=== PATIENT | male | born 1955 | race Caucasian/White ===

== ENCOUNTER → 2016-07-22 | Outpatient (CLI) | payer OTHER ==
--- NOTE | 2016-07-22 18:31 | US ---
EXAMINATION TYPE: US venous doppler duplex LE RT DATE OF EXAM: 07/22/2016 6:20 PM COMPARISON: NONE CLINICAL HISTORY: M79.661 Pain in limb R22.41 Limb swelling. Swelling in right leg x few months. No hx of blood clots or on blood thinners SIDE PERFORMED: Right TECHNIQUE: The lower extremity deep venous system is examined utilizing real time linear array sonog juventino with graded compression, doppler sonography and color-flow sonography. VESSELS IMAGED: External Iliac Vein (EIV) Common Femoral Vein Deep Femoral Vein Greater Saphenous Vein * Femoral Vein Popliteal Vein Small Saphenous Vein * Proximal Calf Veins (* superficial vessels) Right Leg: Appears negative for DVT IMPRESSION: No evidence of deep venous thrombosis in the right leg. Normal exam.
== END | disposition home or self-care (01) ==
LOC: RADUSMAIN 17:44
PROVIDERS: ATTEND Internal Medicine
DX: R22.41 Localized swelling, mass and lump, right lower limb (principal)

== ENCOUNTER → 2016-08-30 | Outpatient (CLI) | payer OTHER ==
--- NOTE | 2016-08-30 17:57 | PN ---
DATE OF SLEEP CENTER PROGRESS NOTE: 08/30/2016 This patient has severe symptomatic obstructive sleep apnea with an AHI of 89.2. He has come again after a year and a half of interruption. I have given and treated this patient with BiPAP at a pressure of 14/10 cm of water with a Simplus full-face mask. After using it for a few months, he quit using the BiPAP for reasons that are not clear to me. He claims that there was some leak around the mask and he was unable to tolerate the treatment; he ultimately quit the treatment approximately a year ago. He also had lost his privileges to maintain his oxygen that was being used at 3 L/minute along with his BiPAP treatment. Currently he is on no treatment. He is having severe tiredness and fatigue and his sleep is quite fragmented. He is snoring and waking up very tired and sleepy during the day. His Lindrith score is 12. BP is 117/80, pulse 95 , respiratory rate 18. Temperature 98.7. Saturation 92% on room air. Neck size 17-1/2 inches. Weight 251. GENERAL APPEARANCE: Calm, comfortable. HEENT: Short neck. Crowding of posterior pharynx. Poor dental hygiene. No goiter or neck masses. LUNGS: Clear to auscultation. Heart sounds regular rate and rhythm. Normal S1, S2. ABDOMEN: Soft, non-tender. No organomegaly. EXTREMITIES: No edema. No cyanosis or clubbing. IMPRESSION: 1. Severe symptomatic obstructive sleep apnea; AHI of 89.2. Noncompliance with treatment. 2. Obesity; body mass index of 45. 3. Chronic hypersomnia. Lindrith score of 12. 4. Hypertension. 5. Hyperlipidemia. 6. cable splicing technician worker. 7. History of cerebrovascular accident. PLAN: 1. Refit this patient with a full-face mask. Will try the AirFit F10 full-face mask. 2. Restart BiPAP therapy. 3. See me back in 2 months' time to reassess and reevaluate compliance. CAREN
== END ==
LOC: SLEEP 13:26
PROVIDERS: ATTEND Internal Medicine Critical Care Medicine
DX: G47.33 Obstructive sleep apnea (adult) (pediatric) (principal); E66.9 Obesity, unspecified; G47.10 Hypersomnia, unspecified; I10 Essential (primary) hypertension; E78.5 Hyperlipidemia, unspecified; Z68.42 Body mass index [BMI] 45.0-49.9, adult

== ENCOUNTER → 2016-10-12 | Outpatient (CLI) | payer OTHER ==
[2016-10-12 11:38] LABS: CH 29.8; HCT 48.3 % (39.0-53.0); HDW 2.93; HGB 16.3 gm/dL (13.0-17.5); MCH 28.9 pg (25.0-35.0); MCHC 33.8 g/dL (31.0-37.0); MCV 85.5 fL (80.0-100.0); Mean Platelet Volume 7.4; RBC 5.65 m/uL (4.30-5.90); RDW 15.1 % (11.5-15.5); WBC 7.8 k/uL (3.8-10.6)
[2016-10-12 12:46] LABS: ALT 48 U/L (21-72); AST 28 U/L (17-59); Alkaline Phosphatase 94 U/L (38-126); Anion Gap 10 mmol/L; Blood Urea Nitrogen 16 mg/dL (9-20); Calcium 9.6 mg/dL (8.4-10.2); Carbon Dioxide 26 mmol/L (22-30); Chloride 105 mmol/L (98-107); Glucose 134 mg/dL (74-99); Non-African American GFR(MDRD) >60 (>60 ml/min/1.73 sqM); Potassium 4.5 mmol/L (3.5-5.1); Sodium 141 mmol/L (137-145); Total Bilirubin 0.6 mg/dL (0.2-1.3); Total Protein 7.3 g/dL (6.3-8.2)
[2016-10-12 13:53] LABS: Vitamin B12 349 pg/mL (239-931)
== END | disposition home or self-care (01) ==
LOC: LABWHC1 11:16
PROVIDERS: ATTEND Psychiatry & Neurology Pain Medicine
DX: R41.3 Other amnesia (principal)
CPT/HCPCS: 36415; 80053; 82306; 82607; 82746; 83090; 84439; 84443; 84481; 85027

== ENCOUNTER 2016-10-16 18:57 | Inpatient (IN) | payer OTHER ==
--- NOTE | 2016-10-16 19:01 | ED ---
General Adult HPI - General Stated complaint: Alter Mental State Time Seen by Provider: 10/16/16 18:58 Source: RN notes reviewed, old records reviewed Limitations: altered mental status - History of Present Illness Initial comments: This is a 61-year-old male here for evaluation and altered mental status. Patient's friend for evaluation of altered mental status. Patient is complaining of more pain and more weakness for the last day and. She complains of pain over suprapubic pubic area, patient also has cough cough is chronic in nature. The getting worse. Patient had and did not know that he had a fever today. He does not feel well, decreased appetite. Mild nausea no vomiting. No diarrhea. - Related Data Home Medications Medication Instructions Recorded Confirmed Albuterol Inhaler [Ventolin Hfa 2 puff INHALATION RT-QID 10/16/16 10/16/16 Inhaler] Baclofen [Lioresal] 5 mg PO BID 10/16/16 10/16/16 Baclofen [Lioresal] 10 mg PO HS 10/16/16 10/16/16 Beclomethasone Dip 80 Mcg/Puff 2 puff INHALATION RT-BID 10/16/16 10/16/16 [Qvar 80 mcg] Donepezil HCl [Aricept] 5 mg PO HS 10/16/16 10/16/16 Furosemide [Lasix] 20 mg PO QAM 10/16/16 10/16/16 Metoprolol Tartrate [Lopressor] 25 mg PO QAM 10/16/16 10/16/16 Montelukast [Singulair] 10 mg PO HS 10/16/16 10/16/16 Potassium Chloride [Klor-Con 10] 10 meq PO BID-W/MEALS 10/16/16 10/16/16 Pramipexole [Mirapex] 0.25 mg PO HS 10/16/16 10/16/16 Primidone [Mysoline] 50 mg PO HS 10/16/16 10/16/16 Simvastatin [Zocor] 20 mg PO HS 10/16/16 10/16/16 amLODIPine [Norvasc] 10 mg PO QAM 10/16/16 10/16/16 Allergies Allergy/AdvReac Type Severity Reaction Status Date / Time No Known Allergies Allergy Verified 10/16/16 20:34 Review of Systems ROS Statement: Those systems with pertinent positive or pertinent negative responses have been documented in the HPI. ROS Other: All systems not noted in ROS Statement are negative. General Exam Limitations: altered mental status General appearance: alert, in no apparent distress Head exam: Present: atraumatic, normocephalic, normal inspection Eye exam: Present: normal appearance, PERRL, EOMI. Absent: scleral icterus, conjunctival injection, periorbital swelling ENT exam: Present: normal exam, mucous membranes moist Neck exam: Present: normal inspection. Absent: tenderness, meningismus, lymphadenopathy Respiratory exam: Present: normal lung sounds bilaterally. Absent: respiratory distress, wheezes, rales, rhonchi, stridor Cardiovascular Exam: Present: regular rate, normal rhythm, normal heart sounds. Absent: systolic murmur, diastolic murmur, rubs, gallop, clicks GI/Abdominal exam: Present: soft, normal bowel sounds. Absent: distended, tenderness, guarding, rebound, rigid Extremities exam: Present: normal inspection, full ROM, normal capillary refill. Absent: tenderness, pedal edema, joint swelling, calf tenderness Back exam: Present: normal inspection Neurological exam: Present: alert, oriented X3, CN II-XII intact Psychiatric exam: Present: normal affect, normal mood Skin exam: Present: warm, dry, intact, normal color. Absent: rash Course Vital Signs 10/16/16 10/16/16 10/16/16 19:00 19:49 20:21 Temperature 100.6 F H 99.0 F Pulse Rate 91 92 83 Respiratory 18 20 20 Rate Blood Pressure 147/86 135/64 137/69 O2 Sat by Pulse 89 L 94 L 95 Oximetry 10/16/16 21:08 Temperature 98.7 F Pulse Rate 81 Respiratory 20 Rate Blood Pressure 136/80 O2 Sat by Pulse 96 Oximetry - Reevaluation(s) Reevaluation #1: 10/16/16 21:40 Patient this point is good pain control, fevers improvement with pain consistent with symptomatic management EKG Findings - EKG Comments: EKG Findings:: EKG shows normal sinus rhythm elevated I, [place] 42, QRS 80, QTC 425 Medical Decision Making - Medical Decision Making Patient ambulate here for evaluation of bowel pain. Patient prepped diverticulum, patient be put on IV antibiotics, admitted to general surgery for evaluation and treatment, - Lab Data Result diagrams: 10/16/16 19:25 10/16/16 19:25 Lab Results 10/16/16 10/16/16 10/16/16 Range/Units 19:25 19:25 19:25 WBC 17.7 H (3.8-10.6) k/uL RBC 4.89 (4.30-5.90) m/uL Hgb 14.5 (13.0-17.5) gm/dL Hct 41.8 (39.0-53.0) % MCV 85.7 (80.0-100.0) fL MCH 29.8 (25.0-35.0) pg MCHC 34.8 (31.0-37.0) g/dL RDW 14.0 (11.5-15.5) % Plt Count 185 (150-450) k/uL Neutrophils % 87 % Lymphocytes % 6 % Monocytes % 5 % Eosinophils % 0 % Basophils % 0 % Neutrophils # 15.4 H (1.3-7.7) k/uL Lymphocytes # 1.0 (1.0-4.8) k/uL Monocytes # 1.0 (0-1.0) k/uL Eosinophils # 0.0 (0-0.7) k/uL Basophils # 0.0 (0-0.2) k/uL PT (9.0-12.0) sec INR (<1.2) APTT (22.0-30.0) sec Sodium 135 L (137-145) mmol/L Potassium 4.5 (3.5-5.1) mmol/L Chloride 104 (98-107) mmol/L Carbon Dioxide 20 L (22-30) mmol/L Anion Gap 11 mmol/L BUN 27 H (9-20) mg/dL Creatinine 1.10 (0.66-1.25) mg/dL Est GFR (MDRD) Af Amer >60 (>60 ml/min/1.73 sqM) Est GFR (MDRD) Non-Af >60 (>60 ml/min/1.73 sqM) Glucose 173 H (74-99) mg/dL Plasma Lactic Acid Fernando (0.7-2.0) mmol/L Calcium 9.2 (8.4-10.2) mg/dL Phosphorus 3.5 (2.5-4.5) mg/dL Magnesium 2.0 (1.6-2.3) mg/dL Total Bilirubin 1.8 H (0.2-1.3) mg/dL AST 60 H (17-59) U/L ALT 63 (21-72) U/L Alkaline Phosphatase 96 (38-126) U/L Total Creatine Kinase 358 H (55-170) U/L CK-MB (CK-2) 1.9 (0.0-2.4) ng/mL CK-MB (CK-2) Rel Index 0.5 Troponin I <0.012 (0.000-0.034) ng/mL Total Protein 6.8 (6.3-8.2) g/dL Albumin 3.7 (3.5-5.0) g/dL Urine Color Urine Appearance (Clear) Urine pH (5.0-8.0) Ur Specific [place] (1.001-1.035) Urine Protein (Negative) Urine Glucose (UA) (Negative) Urine Ketones (Negative) Urine Blood (Negative) Urine Nitrite (Negative) Urine Bilirubin (Negative) Urine Urobilinogen (<2.0) mg/dL Ur Leukocyte Esterase (Negative) Urine RBC (0-5) /hpf Urine WBC (0-5) /hpf Ur Squamous Epith Cells (0-4) /hpf Urine Bacteria (None) /hpf Cellular Casts (0) /lpf Hyaline Casts (0-2) /lpf Granular Casts (0) /lpf Urine Mucus (None) /hpf 10/16/16 10/16/16 10/16/16 Range/Units 19:25 19:25 19:45 WBC (3.8-10.6) k/uL RBC (4.30-5.90) m/uL Hgb (13.0-17.5) gm/dL Hct (39.0-53.0) % MCV (80.0-100.0) fL MCH (25.0-35.0) pg MCHC (31.0-37.0) g/dL RDW (11.5-15.5) % Plt Count (150-450) k/uL Neutrophils % % Lymphocytes % % Monocytes % % Eosinophils % % Basophils % % Neutrophils # (1.3-7.7) k/uL Lymphocytes # (1.0-4.8) k/uL Monocytes # (0-1.0) k/uL Eosinophils # (0-0.7) k/uL Basophils # (0-0.2) k/uL PT 11.2 (9.0-12.0) sec INR 1.1 (<1.2) APTT 24.1 (22.0-30.0) sec Sodium (137-145) mmol/L Potassium (3.5-5.1) mmol/L Chloride (98-107) mmol/L Carbon Dioxide (22-30) mmol/L Anion Gap mmol/L BUN (9-20) mg/dL Creatinine (0.66-1.25) mg/dL Est GFR (MDRD) Af Amer (>60 ml/min/1.73 sqM) Est GFR (MDRD) Non-Af (>60 ml/min/1.73 sqM) Glucose (74-99) mg/dL Plasma Lactic Acid Fernando 1.1 (0.7-2.0) mmol/L Calcium (8.4-10.2) mg/dL Phosphorus (2.5-4.5) mg/dL Magnesium (1.6-2.3) mg/dL Total Bilirubin (0.2-1.3) mg/dL AST (17-59) U/L ALT (21-72) U/L Alkaline Phosphatase (38-126) U/L Total Creatine Kinase (55-170) U/L CK-MB (CK-2) (0.0-2.4) ng/mL CK-MB (CK-2) Rel Index Troponin I (0.000-0.034) ng/mL Total Protein (6.3-8.2) g/dL Albumin (3.5-5.0) g/dL Urine Color Yellow Urine Appearance Cloudy (Clear) Urine pH 5.5 (5.0-8.0) Ur Specific [place] 1.023 (1.001-1.035) Urine Protein 1+ H (Negative) Urine Glucose (UA) Negative (Negative) Urine Ketones 1+ H (Negative) Urine Blood Trace H (Negative) Urine Nitrite Negative (Negative) Urine Bilirubin Negative (Negative) Urine Urobilinogen 4.0 (<2.0) mg/dL Ur Leukocyte Esterase Negative (Negative) Urine RBC 2 (0-5) /hpf Urine WBC 6 H (0-5) /hpf Ur Squamous Epith Cells 1 (0-4) /hpf Urine Bacteria Rare H (None) /hpf Cellular Casts 3 (0) /lpf Hyaline Casts 36 H (0-2) /lpf Granular Casts 4 (0) /lpf Urine Mucus Many H (None) /hpf - Radiology Data Radiology results: report reviewed (Chest x-ray negative, CT of the pelvis positive for peripheral diverticulitis), image reviewed Disposition Clinical Impression: Intra-abdominal free air of unknown etiology, Perforated diverticulum Disposition: ADMITTED IP TO THIS HOSP Condition: Serious Referrals: Ирина Lozano MD [Primary Care Provider] - 1-2 days
[2016-10-16] MEDS ORDERED: SODIUM CHLORIDE 0.9% 1,000 ML IV STA ×2 (19:15)
[2016-10-16] MEDS ORDERED: ACETAMINOPHEN TAB 500 MG TAB PO STA (19:15)
[2016-10-16] MEDS ORDERED: SODIUM CHLORIDE 0.9% 500 ML IV STA (19:15)
[2016-10-16] MEDS ORDERED: IBUPROFEN 600 MG TAB PO STA (19:15)
[2016-10-16 19:57] LABS: ALT 63 U/L (21-72); AST 60 U/L (17-59); Alkaline Phosphatase 96 U/L (38-126); Anion Gap 11 mmol/L; Blood Urea Nitrogen 27 mg/dL (9-20); Calcium 9.2 mg/dL (8.4-10.2); Carbon Dioxide 20 mmol/L (22-30); Chloride 104 mmol/L (98-107); Creatine Kinase 358 U/L (55-170); Glucose 173 mg/dL (74-99); Non-African American GFR(MDRD) >60 (>60 ml/min/1.73 sqM); Phosphorous 3.5 mg/dL (2.5-4.5); Potassium 4.5 mmol/L (3.5-5.1); Sodium 135 mmol/L (137-145); Total Bilirubin 1.8 mg/dL (0.2-1.3); Total Protein 6.8 g/dL (6.3-8.2)
[2016-10-16 20:09] LABS: Creatine Kinase MB 1.9 ng/mL (0.0-2.4); Troponin I <0.012 ng/mL (0.000-0.034)
[2016-10-16 20:11] LABS: Appearance,Urine Cloudy (Clear); Bacteria,Urine Rare /hpf; Bilirubin,Urine Negative (Negative); Glucose,Urine (UA) Negative (Negative); Granular Casts,Urine 4 /lpf (0); Ketones,Urine 1+ (Negative); Leukocyte Esterase,Urine Negative (Negative); Mucus,Urine Many /hpf; Nitrite,Urine Negative (Negative); PH, Urine 5.5 (5.0-8.0); Particle Count 13177; Protein,Urine 1+ (Negative); RBC,Urine 2 /hpf (0-5); Specific Gravity,Urine 1.023 (1.001-1.035); Squamous Epithelial Cell,Urine 1 /hpf (0-4); UA Billing (MACRO vs. MICRO) MICRO; WBC,Urine 6 /hpf (0-5)
[2016-10-16 20:20] LABS: Basophils % (A) 0 %; CH 28.6; CHCM 33.6; Eosinophils % (A) 0 %; HCT 41.8 % (39.0-53.0); HDW 2.79; HGB 14.5 gm/dL (13.0-17.5); Luc # (Auto) 0.26; Luc % (Auto) 2; Lymphocytes % (A) 6 %; MCH 29.8 pg (25.0-35.0); MCHC 34.8 g/dL (31.0-37.0); MCV 85.7 fL (80.0-100.0); Mean Platelet Volume 7.8; Monocytes % (A) 5 %; Neutrophils # (A) 15.4 k/uL (1.3-7.7); Neutrophils % (A) 87 %; RBC 4.89 m/uL (4.30-5.90); WBC 17.7 k/uL (3.8-10.6); WBC (Perox) 17.65
--- NOTE | 2016-10-16 20:31 | XR ---
EXAMINATION TYPE: XR chest 2V DATE OF EXAM: 10/16/2016 COMPARISON: NONE INDICATION: Weakness fever TECHNIQUE: Frontal and lateral views of the chest are obtained. FINDINGS: The heart size is normal. The pulmonary vasculature is normal. The lungs are clear. There is some hyperinflation flattening the diaphragms. Consider emphysematous change or good inspiratory effort. IMPRESSION: 1. No acute pulmonary process.
[2016-10-16] MEDS ORDERED: RX INFO: IV CONTRAST WAS GIVEN 1 EACH MISC MISCELLANE PRN (20:33)
[2016-10-16 20:41] LABS: INR 1.1 (<1.2); Partial Thromboplastin Time 24.1 sec (22.0-30.0); Prothrombin Time 11.2 sec (9.0-12.0)
[2016-10-16] MEDS ORDERED: AMPICILLIN-SULBACTAM 3 GM in SODIUM CHLORIDE 0.9% 100 ML IVPB STA (21:15)
--- NOTE | 2016-10-16 21:18 | CT ---
EXAMINATION TYPE: CT abdomen pelvis w con DATE OF EXAM: 10/16/2016 COMPARISON: NONE INDICATION: Patient complains of inabilty to move legs. Patient denies abd/pelvic complaints at time of study. DLP: 2000.2 mGycm, Automated exposure control for dose reduction was used. CONTRAST: 100 mL of Omnipaque 300. Study performed without Oral Contrast TECHNIQUE: Axial images were obtained from above the diaphragm to the pubic rami in the axial plane a t 5 mm thick sections. Reconstructed images are reviewed on the computer in the coronal plane. FINDINGS: Limited CT sections are obtained the lung bases. The lung bases are clear. CT ABDOMEN: Tiny amount of free air is adjacent to the diaphragm to the nondependent portion of the e pigastric region. Liver: Normal Spleen: Normal Pancreas: Normal Adrenal glands: The adrenal glands are normal. Gallbladder: Normal Kidneys: No masses are evident. There is a superior medial left renal cyst measuring 4.7 cm in diamet er. No masses or hydronephrosis are evident Delayed images were obtained through the kidneys. Aorta: Vascular calcification is within the aorta. Inferior vena cava: Normal. CT PELVIS: There is a low-density collection with surrounding inflammatory changes in the left mid ab domen mesentery. This is adjacent to some small bowel loops with thickened wall loops of bowel. Loops of bowel is region are somewhat prominent. This area measures 3.0 x 2.1 cm and is suspected for a de veloping abscess or possibly large diverticulum with acute diverticulitis. Loops of bowel within the abdomen and pelvis are normal. Study is without oral contrast limiting the evaluation. Additional diverticular changes are within the mid to proximal sigmoid colon. Periumb ilical hernia containing mesenteric fat is evident. Appendix: Normal as visualized. Urinary bladder: Normal. Genitourinary structures: Prostate is unremarkable. Osseous structures: No suspicious lytic or sclerotic lesions. IMPRESSIONS: 1. Small amount of free air within the epigastric region adjacent to the diaphragm. This is likely f rom an abscess or diverticulum adjacent to some thick walled small bowel loops within the left midabd omen. 2. Report was called to Dr. Nye by Dr. Clay by telephone [phone] hours 10/16/2016
[2016-10-16] MEDS ORDERED: SODIUM CHLORIDE 0.9% 1,000 ML IV ONE (21:37)
[2016-10-16] MEDS ORDERED: MORPHINE SULFATE 4 MG/ML SYRINGE IVP STA (21:37)
[2016-10-16] MEDS ORDERED: ONDANSETRON 4 MG/2 ML VIAL IVP PRN (21:37)
[2016-10-16] MEDS ORDERED: MORPHINE SULFATE 4 MG/ML SYRINGE IVP PRN (21:37)
[2016-10-16 22:52] VITALS: BMI 45.6
[2016-10-17] MEDS: metroNIDAZOLE-NS PMX 500 MG in SALINE 1 100ML.BAG IVPB SCH ×3 (01:13→15:44)
--- NOTE | 2016-10-17 03:00 | P.GSHP ---
History of Present Illness H&P Date: 10/17/16 Chief Complaint: Abdominal Pain Mr. Dye is a 61 year old male with a past history of CVA who presents today with a complaint of abdominal pain. He states that it has been going on for several days he is unsure of how many exactly but states less than a week. He says the pain just got worse so he came to the hospital. Since being in the hospital the pain has subsided. He denies N/V. Admits to having normal BM today. Denies F/C. His last colonoscopy was over 5 years ago and he states it was normal at that time. No other complaints. 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 Past Psychological History: No Psychological Hx Reported Smoking Status: Current every day smoker Past Alcohol Use History: None Reported Past Drug Use History: None Reported Medications and Allergies Home Medications Medication Instructions Recorded Confirmed Type Albuterol Inhaler [Ventolin Hfa 2 puff INHALATION RT-QID 10/16/16 10/16/16 History Inhaler] Baclofen [Lioresal] 5 mg PO BID 10/16/16 10/16/16 History Baclofen [Lioresal] 10 mg PO HS 10/16/16 10/16/16 History Beclomethasone Dip 80 Mcg/Puff 2 puff INHALATION RT-BID 10/16/16 10/16/16 History [Qvar 80 mcg] Donepezil HCl [Aricept] 5 mg PO HS 10/16/16 10/16/16 History Furosemide [Lasix] 20 mg PO QAM 10/16/16 10/16/16 History Metoprolol Tartrate [Lopressor] 25 mg PO QAM 10/16/16 10/16/16 History Montelukast [Singulair] 10 mg PO 10/16/16 10/16/16 History Potassium Chloride [Klor-Con 10] 10 meq PO BID-W/MEALS 10/16/16 10/16/16 History Pramipexole [Mirapex] 0.25 mg PO HS 10/16/16 10/16/16 History Primidone [Mysoline] 50 mg PO HS 10/16/16 10/16/16 History Simvastatin [Zocor] 20 mg PO HS 10/16/16 10/16/16 History amLODIPine [Norvasc] 10 mg PO QAM 10/16/16 10/16/16 History Allergies Allergy/AdvReac Type Severity Reaction Status Date / Time No Known Allergies Allergy Verified 10/16/16 20:34 Surgical - Exam Osteopathic Statement: *. No significant issues noted on an osteopathic structural exam other than those noted in the History and Physical/Consult. Vital Signs Temp Pulse Resp BP Pulse Ox 100.6 F H 91 18 147/86 89 L 10/16/16 19:00 10/16/16 19:00 10/16/16 19:00 10/16/16 19:00 10/16/16 19:00 - General well developed, well nourished - Eyes PERRL - ENT normal pinna, normal nares - Neck no masses - Respiratory normal expansion, normal respiratory effort - Cardiovascular Rhythm: regular - Abdomen Abdomen: soft, non tender, no distended - Integumentary no rash - Psychiatric oriented to time, oriented to person, oriented to place Results - Labs 10/16/16 19:25 10/16/16 19:25 Abnormal Lab Results - Last 24 Hours (Table) 10/16/16 10/16/16 10/16/16 Range/Units 19:25 19:25 19:25 WBC 17.7 H (3.8-10.6) k/uL Neutrophils # 15.4 H (1.3-7.7) k/uL Sodium 135 L (137-145) mmol/L Carbon Dioxide 20 L (22-30) mmol/L BUN 27 H (9-20) mg/dL Glucose 173 H (74-99) mg/dL Total Bilirubin 1.8 H (0.2-1.3) mg/dL AST 60 H (17-59) U/L Total Creatine Kinase 358 H (55-170) U/L Urine Protein (Negative) Urine Ketones (Negative) Urine Blood (Negative) Urine WBC (0-5) /hpf Urine Bacteria (None) /hpf Hyaline Casts (0-2) /lpf Urine Mucus (None) /hpf 10/16/16 Range/Units 19:45 WBC (3.8-10.6) k/uL Neutrophils # (1.3-7.7) k/uL Sodium (137-145) mmol/L Carbon Dioxide (22-30) mmol/L BUN (9-20) mg/dL Glucose (74-99) mg/dL Total Bilirubin (0.2-1.3) mg/dL AST (17-59) U/L Total Creatine Kinase (55-170) U/L Urine Protein 1+ H (Negative) Urine Ketones 1+ H (Negative) Urine Blood Trace H (Negative) Urine WBC 6 H (0-5) /hpf Urine Bacteria Rare H (None) /hpf Hyaline Casts 36 H (0-2) /lpf Urine Mucus Many H (None) /hpf Diabetes panel 10/16/16 Range/Units 19:25 Sodium 135 L (137-145) mmol/L Potassium 4.5 (3.5-5.1) mmol/L Chloride 104 (98-107) mmol/L Carbon Dioxide 20 L (22-30) mmol/L BUN 27 H (9-20) mg/dL Creatinine 1.10 (0.66-1.25) mg/dL Glucose 173 H (74-99) mg/dL Calcium 9.2 (8.4-10.2) mg/dL AST 60 H (17-59) U/L ALT 63 (21-72) U/L Alkaline Phosphatase 96 (38-126) U/L Total Protein 6.8 (6.3-8.2) g/dL Albumin 3.7 (3.5-5.0) g/dL Calcium panel 10/16/16 Range/Units 19:25 Calcium 9.2 (8.4-10.2) mg/dL Phosphorus 3.5 (2.5-4.5) mg/dL Albumin 3.7 (3.5-5.0) g/dL Pituitary panel 10/16/16 Range/Units 19:25 Sodium 135 L (137-145) mmol/L Potassium 4.5 (3.5-5.1) mmol/L Chloride 104 (98-107) mmol/L Carbon Dioxide 20 L (22-30) mmol/L BUN 27 H (9-20) mg/dL Creatinine 1.10 (0.66-1.25) mg/dL Glucose 173 H (74-99) mg/dL Calcium 9.2 (8.4-10.2) mg/dL Adrenal panel 10/16/16 Range/Units 19:25 Sodium 135 L (137-145) mmol/L Potassium 4.5 (3.5-5.1) mmol/L Chloride 104 (98-107) mmol/L Carbon Dioxide 20 L (22-30) mmol/L BUN 27 H (9-20) mg/dL Creatinine 1.10 (0.66-1.25) mg/dL Glucose 173 H (74-99) mg/dL Calcium 9.2 (8.4-10.2) mg/dL Total Bilirubin 1.8 H (0.2-1.3) mg/dL AST 60 H (17-59) U/L ALT 63 (21-72) U/L Alkaline Phosphatase 96 (38-126) U/L Total Protein 6.8 (6.3-8.2) g/dL Albumin 3.7 (3.5-5.0) g/dL - Imaging CT scan - abdomen: report reviewed, image reviewed Assessment and Plan (1) Acute diverticulitis Status: Acute Plan: Patient has acute diverticulitis. There was a small speck of air outside the lumen of the bowel. His physical exam is completely benign. I discussed with the patient that he will be kept NPO with IVF rocephin and flagyl. He states he understood and agreed. There is no plan for acute surgical intervention at this time.
[2016-10-17] MEDS ORDERED: AMPICILLIN-SULBACTAM 3 GM in SODIUM CHLORIDE 0.9% 100 ML IVPB SCH (06:00)
[2016-10-17 08:10] LABS: Basophils % (A) 0 %; CH 29.5; CHCM 33.9; Eosinophils % (A) 0 %; HCT 40.6 % (39.0-53.0); HDW 2.82; HGB 13.5 gm/dL (13.0-17.5); Luc # (Auto) 0.09; Luc % (Auto) 1; Lymphocytes # (A) 0.5 k/uL (1.0-4.8); Lymphocytes % (A) 4 %; MCHC 33.2 g/dL (31.0-37.0); MCV 87.4 fL (80.0-100.0); Mean Platelet Volume 7.8; Monocytes # (A) 0.5 k/uL (0-1.0); Monocytes % (A) 3 %; Neutrophils % (A) 92 %; RBC 4.65 m/uL (4.30-5.90); RDW 14.8 % (11.5-15.5); WBC 14.1 k/uL (3.8-10.6); WBC (Perox) 13.53
[2016-10-17 08:24] LABS: Anion Gap 12 mmol/L; Blood Urea Nitrogen 17 mg/dL (9-20); Calcium 8.9 mg/dL (8.4-10.2); Carbon Dioxide 19 mmol/L (22-30); Chloride 107 mmol/L (98-107); Glucose 157 mg/dL (74-99); Non-African American GFR(MDRD) >60 (>60 ml/min/1.73 sqM); Potassium 3.9 mmol/L (3.5-5.1); Sodium 138 mmol/L (137-145)
[2016-10-17] MEDS: ENOXAPARIN 40 MG/0.4 ML SYRINGE SQ SCH (08:29)
[2016-10-17] MEDS: ACETAMINOPHEN TAB 325 MG TAB PO PRN (13:19)
[2016-10-17] MEDS ORDERED: RX INFO: IV CONTRAST WAS GIVEN 1 EACH MISC MISCELLANE PRN (13:34)
[2016-10-17] MEDS: predniSONE 20 MG TAB PO SCH (14:27)
[2016-10-17] MEDS ORDERED: ALBUTEROL NEBULIZED 2.5 MG/3 ML INHALATION SCH (16:00)
--- NOTE | 2016-10-17 16:34 | P.CONS ---
History of Present Illness - Reason for Consult Consult date: 10/17/16 Dr. sykes, request for management of his complex medical issues - History of Present Illness Is a 61-year-old gentleman apparently has been undergoing multiple problems including some gait dysfunction and intermittent weakness over the last few weeks to months. Patient apparently has been seen by neurologist in town was requested to undergo MRI of the spine and a nuclear study of the brain. There is some suspicion for [place] to some type of features. Interestingly patient apparently has been diagnosed with Alzheimer's dementia at the age of 50 by his doctor. Patient is on multiple medications including baclofen primidone and other pain medications for unknown reason. Patient today comes in the hospital for evaluation of all his medical conditions and this new abdominal pain that has started over the last few days. Patient apparently thought to have severe left- sided pain denies having any nausea vomiting bloody diarrhea urinary urgency or frequency at this time. Patient underwent a computed tomography scan of the abdomen and pelvis with contrast was noted to have a perforated diverticuli with mild amount of free air focused in the left hemiabdomen Patient is admitted to the hospital under under the care of Dr. sykes At this time patient's was at bedside states the patient is also having some weakness on the left side which is also new. Family has requested that patient be evaluated for all these conditions while he is in the hospital. I did discuss in detail that these issues are more chronic in nature some of the testing that needs to be done if it is done on more of an outpatient basis patient is currently admitted to the hospital for the etiology of his abdominal pain Patient denies having any urinary incontinence fecal incontinence. Denies having any chronic lower back pain. Apparently does seem to have a tremor intermittently gait appears to be shuffling Review of systems a 14 point review of systems was done nonpertinent was mentioned above Gen. appearance alert oriented 3 does not appear to be in significant distress neck is supple no JVD Pupils equal round reactive light and outpatient Lungs diminished breath sounds however no crackles rhonchi or wheezes and this is more apparent after coughing and clearing Heart S1-S2 heard regular rhythm no murmurs appreciable Abdomen is soft nontender organomegaly Lower 70s no edema noted Musculoskeletal strength on the left lower extremity is about 3-4 out of 5 on the right is 5 out of 5 no loss of sensation is able to discriminate with light " touch No palpable lumbar spine tenderness Cranial nerves to till 12 grossly intact upper extremity strength is 5 out of 5 Assessment and plan #1 complicated diverticulitis acute #2 gait dysfunction and left-sided musculoskeletal weakness suspicion for nerve plexopathy. However symptoms of tremoring with some loss of higher cerebral function and gait a question of parkinsonism-like features were also raised by his neurologist which will be recommended to be investigated outpatient basis #3 chronic pain syndrome #4 acute bronchitis and ongoing tobacco use Plan Continue intra-abdominal coverage antibiotics prednisone 20 mg will be started for the symptoms of his breathing We'll taper on baclofen and primidone at this time Patient will likely need to be tested a nuclear scan for parkinsonism will be deferred to his neurologist From an internal medicine perspective once patient is stable from his etiology for abdominal pain patient is stable to be discharged to follow-up on this testing on outpatient basis would recommend physical therapy to evaluate safety and any benefit from providing tools for his ambulation at home. 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 Past Psychological History: No Psychological Hx Reported Smoking Status: Current every day smoker Past Alcohol Use History: None Reported Past Drug Use History: None Reported Medications and Allergies Home Medications Medication Instructions Recorded Confirmed Type Albuterol Inhaler [Ventolin Hfa 2 puff INHALATION RT-QID 10/16/16 10/16/16 History Inhaler] Baclofen [Lioresal] 5 mg PO BID 10/16/16 10/16/16 History Baclofen [Lioresal] 10 mg PO HS 10/16/16 10/16/16 History Beclomethasone Dip 80 Mcg/Puff 2 puff INHALATION RT-BID 10/16/16 10/16/16 History [Qvar 80 mcg] Donepezil HCl [Aricept] 5 mg PO HS 10/16/16 10/16/16 History Furosemide [Lasix] 20 mg PO QAM 10/16/16 10/16/16 History Metoprolol Tartrate [Lopressor] 25 mg PO QAM 10/16/16 10/16/16 History Montelukast [Singulair] 10 mg PO HS 10/16/16 10/16/16 History Potassium Chloride [Klor-Con 10] 10 meq PO BID-W/MEALS 10/16/16 10/16/16 History Pramipexole [Mirapex] 0.25 mg PO HS 10/16/16 10/16/16 History Primidone [Mysoline] 50 mg PO HS 10/16/16 10/16/16 History Simvastatin [Zocor] 20 mg PO HS 10/16/16 10/16/16 History amLODIPine [Norvasc] 10 mg PO QAM 10/16/16 10/16/16 History Allergies Allergy/AdvReac Type Severity Reaction Status Date / Time No Known Allergies Allergy Verified 10/16/16 20:34 Physical Exam Vitals: Vital Signs Temp Pulse Pulse Resp BP BP Pulse Ox 10/17/16 14:57 99.4 F 89 20 121/76 93 L 10/17/16 07:00 99.5 F 98 22 134/75 91 L 10/16/16 22:30 98.7 F 78 16 113/60 93 L 10/16/16 21:52 98.8 F 88 20 113/76 96 10/16/16 21:08 98.7 F 81 20 136/80 96 10/16/16 20:21 99.0 F 83 20 137/69 95 10/16/16 19:49 92 20 135/64 94 L 10/16/16 19:00 100.6 F H 91 18 147/86 89 L Intake and Output 10/17/16 10/17/16 10/17/16 06:59 14:59 22:59 Output Total 100 900 Balance -100 -900 Output: Urine 100 900 Other: Voiding Method Urinal Urinal Incontinent # Voids 1 # Bowel Movements 1 Results CBC & Chem 7: 10/17/16 07:35 10/17/16 07:35 Labs: Abnormal Lab Results - Last 24 Hours (Table) 10/16/16 10/16/16 10/16/16 Range/Units 19:25 19:25 19:25 WBC 17.7 H (3.8-10.6) k/uL Neutrophils # 15.4 H (1.3-7.7) k/uL Lymphocytes # (1.0-4.8) k/uL Sodium 135 L (137-145) mmol/L Carbon Dioxide 20 L (22-30) mmol/L BUN 27 H (9-20) mg/dL Glucose 173 H (74-99) mg/dL Total Bilirubin 1.8 H (0.2-1.3) mg/dL AST 60 H (17-59) U/L Total Creatine Kinase 358 H (55-170) U/L Urine Protein (Negative) Urine Ketones (Negative) Urine Blood (Negative) Urine WBC (0-5) /hpf Urine Bacteria (None) /hpf Hyaline Casts (0-2) /lpf Urine Mucus (None) /hpf 10/16/16 10/17/16 10/17/16 Range/Units 19:45 07:35 07:35 WBC 14.1 H (3.8-10.6) k/uL Neutrophils # 13.0 H (1.3-7.7) k/uL Lymphocytes # 0.5 L (1.0-4.8) k/uL Sodium (137-145) mmol/L Carbon Dioxide 19 L (22-30) mmol/L BUN (9-20) mg/dL Glucose 157 H (74-99) mg/dL Total Bilirubin (0.2-1.3) mg/dL AST (17-59) U/L Total Creatine Kinase (55-170) U/L Urine Protein 1+ H (Negative) Urine Ketones 1+ H (Negative) Urine Blood Trace H (Negative) Urine WBC 6 H (0-5) /hpf Urine Bacteria Rare H (None) /hpf Hyaline Casts 36 H (0-2) /lpf Urine Mucus Many H (None) /hpf Microbiology - Last 24 Hours (Table) 10/16/16 19:45 Urine Culture - Preliminary Urine,Voided
[2016-10-17] MEDS: IPRATROPIUM-ALBUTEROL 3 ML NEB INHALATION SCH ×2 (16:40→20:36)
[2016-10-17] MEDS: POTASSIUM CHLORIDE ER 10 MEQ TAB.ER.PRT PO SCH (16:41)
[2016-10-17 17:38] LABS: Glucose,Whole Blood 155 mg/dL (75-99)
[2016-10-17] MEDS: BACLOFEN 10 MG TAB PO SCH (20:25)
[2016-10-17] MEDS: PRIMIDONE 50 MG TAB PO SCH (20:26)
[2016-10-17] MEDS: ATORVASTATIN 10 MG TAB PO SCH (20:26)
[2016-10-17] MEDS: DONEPEZIL 5 MG TAB PO SCH (20:26)
[2016-10-17] MEDS: PRAMIPEXOLE 0.25 MG TAB PO SCH (20:26)
[2016-10-17] MEDS: MONTELUKAST 10 MG TAB PO SCH (20:26)
[2016-10-17] MEDS: BUDESONIDE 1 MG/2 ML NEBU INHALATION SCH (20:36)
[2016-10-18] MEDS: NYSTATIN 100,000 UNIT/GM POWD 15 GM TOPICAL SCH ×3 (00:06→21:58)
[2016-10-18] MEDS: metroNIDAZOLE-NS PMX 500 MG in SALINE 1 100ML.BAG IVPB SCH ×3 (00:06→16:25)
[2016-10-18] MEDS: ACETAMINOPHEN TAB 325 MG TAB PO PRN ×2 (04:09→20:20)
[2016-10-18] MEDS: POTASSIUM CHLORIDE ER 10 MEQ TAB.ER.PRT PO SCH ×2 (08:11→16:55)
[2016-10-18] MEDS: ENOXAPARIN 40 MG/0.4 ML SYRINGE SQ SCH (08:12)
[2016-10-18] MEDS: BACLOFEN 10 MG TAB PO SCH ×2 (08:12→21:57)
[2016-10-18] MEDS: amLODIPine 10 MG TAB PO SCH (08:12)
[2016-10-18] MEDS: METOPROLOL TARTRATE 25 MG TAB PO SCH (08:13)
[2016-10-18] MEDS: predniSONE 20 MG TAB PO SCH (08:13)
[2016-10-18] MEDS: FUROSEMIDE 20 MG TAB PO SCH (08:13)
[2016-10-18] MEDS: BUDESONIDE 1 MG/2 ML NEBU INHALATION SCH ×2 (08:27→20:16)
[2016-10-18] MEDS: IPRATROPIUM-ALBUTEROL 3 ML NEB INHALATION SCH ×4 (08:27→20:16)
--- NOTE | 2016-10-18 15:55 | P.PN ---
Subjective Principal diagnosis: Diverticulitis Patient seen and examined at bedside. He states that he has begun to have liquid of bowel movements. He states his abdominal pain has resolved. He has been started on a clear liquid diet and has been tolerating this diet. He denies fevers chills chest pain or shortness of breath. He has no other complaints at this time. Objective - Vital Signs Vital signs: Vital Signs Temp 97.4 F L 10/18/16 14:48 Pulse 82 10/18/16 14:48 Resp 18 10/18/16 14:48 BP 133/78 10/18/16 14:48 Pulse Ox 92 L 10/18/16 14:48 Intake & Output 10/17/16 10/18/16 10/18/16 18:59 06:59 18:59 Intake Total 100 Output Total 900 1 Balance -900 100 -1 Intake: Oral 100 Output: Urine 900 Urine/Stool Mix 1 Other: Voiding Method Urinal Bedpan Bedpan Urinal Urinal Incontinent Incontinent # Voids 2 4 # Bowel Movements 1 - Constitutional General appearance: Present: morbidly obese, no acute distress - EENT Eyes: Present: EOMI, PERRLA ENT: Present: hearing grossly normal - Neck Neck: Present: normal ROM. Absent: lymphadenopathy - Respiratory Details: No difficulty with respiration - Cardiovascular Rhythm: regular Heart sounds: normal: S1, S2 - Gastrointestinal General gastrointestinal: Present: soft. Absent: distended, hepatomegaly, tenderness - Integumentary Integumentary: Present: normal turgor - Psychiatric Psychiatric: Present: A&O x's 3, appropriate affect - Labs CBC & Chem 7: 10/17/16 07:35 10/17/16 07:35 Labs: Abnormal Lab Results - Last 24 Hours (Table) 10/17/16 Range/Units 17:20 POC Glucose (mg/dL) 155 H (75-99) mg/dL Microbiology - Last 24 Hours (Table) 10/16/16 19:45 Urine Culture - Final Urine,Voided 10/16/16 19:25 Blood Culture - Preliminary Blood No Growth after 24 hours Assessment and Plan (1) Acute diverticulitis Status: Acute Plan: The patient is tolerating a clear liquid diet and since he was started on this today we will continue it for the day. Continue intra-abdominal antibiotics. Appreciate medical recommendations.
--- NOTE | 2016-10-18 18:46 | P.PN ---
Subjective Is a 61-year-old gentleman apparently has been undergoing multiple problems including some gait dysfunction and intermittent weakness over the last few weeks to months. Patient apparently has been seen by neurologist in town was requested to undergo MRI of the spine and a nuclear study of the brain. There is some suspicion for [place] to some type of features. Interestingly patient apparently has been diagnosed with Alzheimer's dementia at the age of 50 by his doctor. Patient is on multiple medications including baclofen primidone and other pain medications for unknown reason. Patient today comes in the hospital for evaluation of all his medical conditions and this new abdominal pain that has started over the last few days. Patient apparently thought to have severe left- sided pain denies having any nausea vomiting bloody diarrhea urinary urgency or frequency at this time. Patient underwent a computed tomography scan of the abdomen and pelvis with contrast was noted to have a perforated diverticuli with mild amount of free air focused in the left hemiabdomen Patient is admitted to the hospital under under the care of Dr. sykes At this time patient's was at bedside states the patient is also having some weakness on the left side which is also new. Family has requested that patient be evaluated for all these conditions while he is in the hospital. I did discuss in detail that these issues are more chronic in nature some of the testing that needs to be done if it is done on more of an outpatient basis patient is currently admitted to the hospital for the etiology of his abdominal pain Patient denies having any urinary incontinence fecal incontinence. Denies having any chronic lower back pain. Apparently does seem to have a tremor intermittently gait appears to be shuffling 10/18/2016 States that the abdominal pain is slightly improved. Is tolerating liquids. No fevers chills nausea or significant diarrhea is reported. Review of systems a 14 point review of systems was done nonpertinent was mentioned above Gen. appearance alert oriented 3 does not appear to be in significant distress neck is supple no JVD Pupils equal round reactive light and outpatient Lungs diminished breath sounds however no crackles rhonchi or wheezes and this is more apparent after coughing and clearing Heart S1-S2 heard regular rhythm no murmurs appreciable Abdomen is soft nontender organomegaly Lower ext no edema noted Musculoskeletal strength on the left lower extremity is about 3-4 out of 5 on the right is 5 out of 5 no loss of sensation is able to discriminate with light " touch No palpable lumbar spine tenderness Cranial nerves to till 12 grossly intact upper extremity strength is 5 out of 5 Assessment and plan #1 complicated diverticulitis acute #2 gait dysfunction and left-sided musculoskeletal weakness suspicion for nerve plexopathy or complex diagnosis like inflammatory dymelinating illness #3 chronic pain syndrome #4 acute bronchitis and ongoing tobacco use Plan Continue tapering off baclofen and primidone. PT will be consulted for evaluation of patient's gait and safety at home patient would likely benefit from additional 2 cycles walker Patient has has been evaluated by neurology and was recommended to undergo a SPECT study for suspicion for parkinsonian features and also EMG and MRI. Computed tomography scan of the spine was nondiagnostic for nerve compression Did discuss the above issues with the patient's family and patient. Objective - Vital Signs Vital signs: Vital Signs Temp 97.4 F L 10/18/16 14:48 Pulse 86 10/18/16 16:32 Resp 22 10/18/16 16:32 BP 133/78 10/18/16 14:48 Pulse Ox 92 L 10/18/16 14:48 Intake & Output 10/17/16 10/18/16 10/18/16 18:59 06:59 18:59 Intake Total 100 Output Total 900 1 Balance -900 100 -1 Intake: Oral 100 Output: Urine 900 Urine/Stool Mix 1 Other: Voiding Method Urinal Bedpan Urinal Urinal Incontinent # Voids 2 4 # Bowel Movements 1 - Labs CBC & Chem 7: 10/17/16 07:35 10/17/16 07:35 Labs: Microbiology - Last 24 Hours (Table) 10/16/16 19:45 Urine Culture - Final Urine,Voided 10/16/16 19:25 Blood Culture - Preliminary Blood No Growth after 24 hours
[2016-10-18] MEDS: ATORVASTATIN 10 MG TAB PO SCH (21:56)
[2016-10-18] MEDS: DONEPEZIL 5 MG TAB PO SCH (21:57)
[2016-10-18] MEDS: MONTELUKAST 10 MG TAB PO SCH (21:57)
[2016-10-18] MEDS: PRIMIDONE 50 MG TAB PO SCH (21:58)
[2016-10-18] MEDS: PRAMIPEXOLE 0.25 MG TAB PO SCH (21:58)
[2016-10-19] MEDS: metroNIDAZOLE-NS PMX 500 MG in SALINE 1 100ML.BAG IVPB SCH ×4 (00:24→23:43)
[2016-10-19] MEDS: ACETAMINOPHEN TAB 325 MG TAB PO PRN (05:27)
[2016-10-19 07:51] LABS: Basophils % (A) 0 %; CH 29.8; CHCM 34.4; Eosinophils # (A) 0.1 k/uL (0-0.7); Eosinophils % (A) 1 %; HCT 44.3 % (39.0-53.0); HDW 2.82; HGB 14.9 gm/dL (13.0-17.5); Luc # (Auto) 0.13; Luc % (Auto) 1; Lymphocytes % (A) 8 %; MCH 29.3 pg (25.0-35.0); MCHC 33.6 g/dL (31.0-37.0); Mean Platelet Volume 7.4; Monocytes # (A) 0.5 k/uL (0-1.0); Monocytes % (A) 4 %; Neutrophils # (A) 10.9 k/uL (1.3-7.7); Neutrophils % (A) 86 %; RBC 5.09 m/uL (4.30-5.90); RDW 14.4 % (11.5-15.5); WBC 12.6 k/uL (3.8-10.6); WBC (Perox) 12.73
[2016-10-19] MEDS: POTASSIUM CHLORIDE ER 10 MEQ TAB.ER.PRT PO SCH ×2 (07:56→17:24)
[2016-10-19] MEDS: ENOXAPARIN 40 MG/0.4 ML SYRINGE SQ SCH (07:56)
[2016-10-19] MEDS: amLODIPine 10 MG TAB PO SCH (07:56)
[2016-10-19] MEDS: predniSONE 20 MG TAB PO SCH (07:57)
[2016-10-19] MEDS: BACLOFEN 10 MG TAB PO SCH ×2 (07:57→20:42)
[2016-10-19] MEDS: NYSTATIN 100,000 UNIT/GM POWD 15 GM TOPICAL SCH ×2 (07:58→20:44)
[2016-10-19] MEDS: METOPROLOL TARTRATE 25 MG TAB PO SCH (07:58)
[2016-10-19] MEDS: FUROSEMIDE 20 MG TAB PO SCH (07:58)
[2016-10-19 08:23] LABS: Anion Gap 9 mmol/L; Blood Urea Nitrogen 11 mg/dL (9-20); Calcium 8.9 mg/dL (8.4-10.2); Carbon Dioxide 24 mmol/L (22-30); Chloride 102 mmol/L (98-107); Glucose 169 mg/dL (74-99); Non-African American GFR(MDRD) >60 (>60 ml/min/1.73 sqM); Potassium 3.6 mmol/L (3.5-5.1); Sodium 135 mmol/L (137-145)
[2016-10-19] MEDS: BUDESONIDE 1 MG/2 ML NEBU INHALATION SCH ×2 (08:25→20:31)
[2016-10-19] MEDS: IPRATROPIUM-ALBUTEROL 3 ML NEB INHALATION SCH ×4 (08:25→20:31)
--- NOTE | 2016-10-19 08:47 | P.PN ---
Subjective Principal diagnosis: Diverticulitis Patient seen and examined at bedside. He states that he has begun to have liquid of bowel movements. He states he has abdominal pain in the suprapubic area. Still tolerating a clear liquid diet. He denies fevers chills chest pain or shortness of breath. He has no other complaints at this time. Objective - Vital Signs Vital signs: Vital Signs Temp 97.1 F L 10/19/16 07:00 Pulse 84 10/19/16 08:42 Resp 18 10/19/16 07:00 BP 132/71 10/19/16 07:00 Pulse Ox 90 L 10/19/16 07:00 Intake & Output 10/18/16 10/19/16 10/19/16 18:59 06:59 18:59 Intake Total 550 Output Total 1 Balance -1 550 Intake: Intake, IV Titration 150 Amount cefTRIAXone 1,000 mg In 50 Sodium Chloride 0.9% 50 ml @ 100 mls/hr IVPB Q24HR [facility] Rx#:[id number] metroNIDAZOLE-NS PMX 500 100 mg In Saline 1 100ml.bag @ 100 mls/hr IVPB Q8HR [facility] Rx#:[id number] Oral 400 Output: Urine/Stool Mix 1 Other: Voiding Method Urinal Urinal # Voids 4 1 # Bowel Movements 1 - Constitutional General appearance: Present: cooperative, no acute distress - EENT Eyes: Present: EOMI, PERRLA ENT: Present: hearing grossly normal - Neck Neck: Present: normal ROM - Respiratory Details: No difficulty with respiration - Cardiovascular Rhythm: regular Heart sounds: normal: S1, S2 - Gastrointestinal Gastrointestinal Comment(s): Soft, mild tenderness to palpation in suprapubic area, non-distended, no rebound , no guarding - Integumentary Integumentary: Present: normal turgor - Psychiatric Psychiatric: Present: A&O x's 3, appropriate affect - Labs CBC & Chem 7: 10/19/16 07:35 10/19/16 07:35 Labs: Abnormal Lab Results - Last 24 Hours (Table) 10/19/16 10/19/16 Range/Units 07:35 07:35 WBC 12.6 H (3.8-10.6) k/uL Neutrophils # 10.9 H (1.3-7.7) k/uL Sodium 135 L (137-145) mmol/L Glucose 169 H (74-99) mg/dL Microbiology - Last 24 Hours (Table) 10/16/16 19:25 Blood Culture - Preliminary Blood No Growth after 48 hours 10/16/16 19:45 Urine Culture - Final Urine,Voided Assessment and Plan (1) Acute diverticulitis Status: Acute Plan: The patient is tolerating a clear liquid diet and since he has some new pain, we will not advance his diet yet. Continue intra-abdominal antibiotics, wbc down to 12.6. Appreciate medical recommendations.
[2016-10-19] MEDS ORDERED: MAG HYDROX/AL HYDROX/SIMETH 30 ML, HYOSCYAMINE ELIXIR 10 ML, CIMETIDINE HCL 300 MG, LID... PO STA ×4 (11:00)
[2016-10-19] MEDS: FAMOTIDINE 20 MG/2 ML VIAL IV SCH ×2 (11:58→20:42)
[2016-10-19] MEDS ORDERED: MAG HYDROX/AL HYDROX/SIMETH 30 ML, HYOSCYAMINE ELIXIR 10 ML, CIMETIDINE HCL 300 MG, LID... PO ONE ×4 (13:00)
--- NOTE | 2016-10-19 18:44 | P.PN ---
Subjective Is a 61-year-old gentleman apparently has been undergoing multiple problems including some gait dysfunction and intermittent weakness over the last few weeks to months. Patient apparently has been seen by neurologist in town was requested to undergo MRI of the spine and a nuclear study of the brain. There is some suspicion for [place] to some type of features. Interestingly patient apparently has been diagnosed with Alzheimer's dementia at the age of 50 by his doctor. Patient is on multiple medications including baclofen primidone and other pain medications for unknown reason. Patient today comes in the hospital for evaluation of all his medical conditions and this new abdominal pain that has started over the last few days. Patient apparently thought to have severe left- sided pain denies having any nausea vomiting bloody diarrhea urinary urgency or frequency at this time. Patient underwent a computed tomography scan of the abdomen and pelvis with contrast was noted to have a perforated diverticuli with mild amount of free air focused in the left hemiabdomen Patient is admitted to the hospital under under the care of Dr. sykes At this time patient's was at bedside states the patient is also having some weakness on the left side which is also new. Family has requested that patient be evaluated for all these conditions while he is in the hospital. I did discuss in detail that these issues are more chronic in nature some of the testing that needs to be done if it is done on more of an outpatient basis patient is currently admitted to the hospital for the etiology of his abdominal pain Patient denies having any urinary incontinence fecal incontinence. Denies having any chronic lower back pain. Apparently does seem to have a tremor intermittently gait appears to be shuffling 10/18/2016 States that the abdominal pain is slightly improved. Is tolerating liquids. No fevers chills nausea or significant diarrhea is reported. 10/19/2016 Today patient complains about a gastric pain that is severe No nausea reported loose stools. However is tolerating liquid diet. Review of systems a 14 point review of systems was done nonpertinent was mentioned above Gen. appearance alert oriented 3 does not appear to be in significant distress neck is supple no JVD Pupils equal round reactive light and outpatient Lungs diminished breath sounds however no crackles rhonchi or wheezes and this is more apparent after coughing and clearing Heart S1-S2 heard regular rhythm no murmurs appreciable Abdomen is soft nontender organomegaly Lower ext no edema noted Musculoskeletal strength on the left lower extremity is about 3-4 out of 5 on the right is 5 out of 5 no loss of sensation is able to discriminate with light " touch No palpable lumbar spine tenderness Cranial nerves to till 12 grossly intact upper extremity strength is 5 out of 5 Assessment and plan #1 complicated diverticulitis acute #2 gait dysfunction and left-sided musculoskeletal weakness suspicion for nerve plexopathy or complex diagnosis like inflammatory dymelinating illness #3 chronic pain syndrome #4 acute bronchitis and ongoing tobacco use Plan Give the patient GI cocktail and Pepcid 20 mg IV. Continue ongoing care Patient has has been evaluated by neurology and was recommended to undergo a SPECT study for suspicion for parkinsonian features and also EMG and MRI. Computed tomography scan of the spine was nondiagnostic for nerve compression Objective - Vital Signs Vital signs: Vital Signs Temp 97.6 F 10/19/16 15:29 Pulse 82 10/19/16 16:05 Resp 20 10/19/16 15:34 BP 113/77 10/19/16 15:29 Pulse Ox 93 L 10/19/16 15:29 Intake & Output 10/18/16 10/19/16 10/19/16 18:59 06:59 18:59 Intake Total 550 Output Total 1 525 Balance -1 550 -525 Intake: Intake, IV Titration 150 Amount cefTRIAXone 1,000 mg In 50 Sodium Chloride 0.9% 50 ml @ 100 mls/hr IVPB Q24HR [facility] Rx#:[id number] metroNIDAZOLE-NS PMX 500 100 mg In Saline 1 100ml.bag @ 100 mls/hr IVPB Q8HR [facility] Rx#:[id number] Oral 400 Output: Urine 525 Urine/Stool Mix 1 Other: Voiding Method Urinal Urinal Urinal # Voids 4 1 3 # Bowel Movements 1 2 - Labs CBC & Chem 7: 10/19/16 07:35 10/19/16 07:35 Labs: Abnormal Lab Results - Last 24 Hours (Table) 10/19/16 10/19/16 Range/Units 07:35 07:35 WBC 12.6 H (3.8-10.6) k/uL Neutrophils # 10.9 H (1.3-7.7) k/uL Sodium 135 L (137-145) mmol/L Glucose 169 H (74-99) mg/dL Microbiology - Last 24 Hours (Table) 10/16/16 19:25 Blood Culture - Preliminary Blood No Growth after 48 hours
[2016-10-19] MEDS: ATORVASTATIN 10 MG TAB PO SCH (20:42)
[2016-10-19] MEDS: DONEPEZIL 5 MG TAB PO SCH (20:42)
[2016-10-19] MEDS: PRAMIPEXOLE 0.25 MG TAB PO SCH (20:43)
[2016-10-19] MEDS: PRIMIDONE 50 MG TAB PO SCH (20:43)
[2016-10-19] MEDS: MONTELUKAST 10 MG TAB PO SCH (20:43)
[2016-10-20] MEDS: BUDESONIDE 1 MG/2 ML NEBU INHALATION SCH ×2 (07:27→20:56)
[2016-10-20] MEDS: IPRATROPIUM-ALBUTEROL 3 ML NEB INHALATION SCH ×4 (07:27→20:56)
[2016-10-20] MEDS: metroNIDAZOLE-NS PMX 500 MG in SALINE 1 100ML.BAG IVPB SCH (08:02)
[2016-10-20] MEDS: FAMOTIDINE 20 MG/2 ML VIAL IV SCH ×2 (08:02→21:30)
[2016-10-20] MEDS: FUROSEMIDE 20 MG TAB PO SCH (08:03)
[2016-10-20] MEDS: METOPROLOL TARTRATE 25 MG TAB PO SCH (08:03)
[2016-10-20] MEDS: POTASSIUM CHLORIDE ER 10 MEQ TAB.ER.PRT PO SCH ×2 (08:04→16:49)
[2016-10-20] MEDS: ENOXAPARIN 40 MG/0.4 ML SYRINGE SQ SCH (08:04)
[2016-10-20] MEDS: predniSONE 20 MG TAB PO SCH (08:04)
[2016-10-20] MEDS: BACLOFEN 10 MG TAB PO SCH ×3 (08:04→22:01)
[2016-10-20] MEDS: NYSTATIN 100,000 UNIT/GM POWD 15 GM TOPICAL SCH ×2 (08:04→22:38)
[2016-10-20] MEDS: amLODIPine 10 MG TAB PO SCH (08:04)
[2016-10-20] MEDS: metroNIDAZOLE 500 MG TAB PO SCH (16:49)
--- NOTE | 2016-10-20 17:53 | P.PN ---
Subjective Is a 61-year-old gentleman apparently has been undergoing multiple problems including some gait dysfunction and intermittent weakness over the last few weeks to months. Patient apparently has been seen by neurologist in town was requested to undergo MRI of the spine and a nuclear study of the brain. There is some suspicion for [place] to some type of features. Interestingly patient apparently has been diagnosed with Alzheimer's dementia at the age of 50 by his doctor. Patient is on multiple medications including baclofen primidone and other pain medications for unknown reason. Patient today comes in the hospital for evaluation of all his medical conditions and this new abdominal pain that has started over the last few days. Patient apparently thought to have severe left- sided pain denies having any nausea vomiting bloody diarrhea urinary urgency or frequency at this time. Patient underwent a computed tomography scan of the abdomen and pelvis with contrast was noted to have a perforated diverticuli with mild amount of free air focused in the left hemiabdomen Patient is admitted to the hospital under under the care of Dr. sykes At this time patient's was at bedside states the patient is also having some weakness on the left side which is also new. Family has requested that patient be evaluated for all these conditions while he is in the hospital. I did discuss in detail that these issues are more chronic in nature some of the testing that needs to be done if it is done on more of an outpatient basis patient is currently admitted to the hospital for the etiology of his abdominal pain Patient denies having any urinary incontinence fecal incontinence. Denies having any chronic lower back pain. Apparently does seem to have a tremor intermittently gait appears to be shuffling 10/18/2016 States that the abdominal pain is slightly improved. Is tolerating liquids. No fevers chills nausea or significant diarrhea is reported. 10/19/2016 Today patient complains about a gastric pain that is severe No nausea reported loose stools. However is tolerating liquid diet. 10/20/2016 Abdominal pain appears to be improved. Tolerating liquid diet her graft no fevers chills headaches blurry vision is reported No overnight events reported Review of systems a 14 point review of systems was done nonpertinent was mentioned above Gen. appearance alert oriented 3 does not appear to be in significant distress neck is supple no JVD Pupils equal round reactive light and outpatient Lungs diminished breath sounds however no crackles rhonchi or wheezes and this is more apparent after coughing and clearing Heart S1-S2 heard regular rhythm no murmurs appreciable Abdomen is soft nontender organomegaly Lower ext no edema noted Musculoskeletal strength on the left lower extremity is about 3-4 out of 5 on the right is 5 out of 5 no loss of sensation is able to discriminate with light " touch No palpable lumbar spine tenderness Cranial nerves to till 12 grossly intact upper extremity strength is 5 out of 5 Assessment and plan #1 complicated diverticulitis acute #2 gait dysfunction and left-sided musculoskeletal weakness suspicion for nerve plexopathy or complex diagnosis like inflammatory dymelinating illness #3 chronic pain syndrome #4 acute bronchitis and ongoing tobacco use Plan Continue ongoing care diet to be advanced according to general surgery Patient has has been evaluated by neurology and was recommended to undergo a SPECT study for suspicion for parkinsonian features and also EMG and MRI. Computed tomography scan of the spine was nondiagnostic for nerve compression Objective - Vital Signs Vital signs: Vital Signs Temp 97.5 F L 10/20/16 15:00 Pulse 72 10/20/16 16:41 Resp 16 10/20/16 15:00 BP 117/84 10/20/16 15:00 Pulse Ox 96 10/20/16 16:26 Intake & Output 10/19/16 10/20/16 10/20/16 18:59 06:59 18:59 Output Total 525 380 400 Balance -525 -380 -400 Output: Urine 525 380 400 Other: Voiding Method Urinal Urinal Urinal # Voids 3 3 3 # Bowel Movements 2 1 2 - Labs CBC & Chem 7: 10/19/16 07:35 10/19/16 07:35 Labs: Microbiology - Last 24 Hours (Table) 10/16/16 19:25 Blood Culture - Preliminary Blood No Growth after 72 hours
[2016-10-20] MEDS: ATORVASTATIN 10 MG TAB PO SCH (21:23)
[2016-10-20] MEDS: DONEPEZIL 5 MG TAB PO SCH (21:23)
[2016-10-20] MEDS: PRAMIPEXOLE 0.25 MG TAB PO SCH (21:24)
[2016-10-20] MEDS: MONTELUKAST 10 MG TAB PO SCH (21:24)
[2016-10-20] MEDS: PRIMIDONE 50 MG TAB PO SCH (21:42)
--- NOTE | 2016-10-20 22:52 | P.PN ---
Subjective Principal diagnosis: Diverticulitis Pain is improved today. He has No complaints. He is hungry and wants more food. No N/V Objective - Vital Signs Vital signs: Vital Signs Temp 97.5 F L 10/20/16 15:00 Pulse 68 10/20/16 21:07 Resp 18 10/20/16 19:16 BP 117/84 10/20/16 15:00 Pulse Ox 96 10/20/16 16:26 Intake & Output 10/20/16 10/20/16 10/21/16 06:59 18:59 06:59 Output Total 380 400 400 Balance -380 -400 -400 Output: Urine 380 400 400 Other: Voiding Method Urinal Urinal # Voids 3 3 4 # Bowel Movements 1 2 0 - Constitutional General appearance: Present: cooperative - Respiratory Details: Nonlabored - Cardiovascular Rhythm: regular - Gastrointestinal Gastrointestinal Comment(s): soft/nontender/nondistened - Integumentary Integumentary: Absent: calor, cellulitis - Psychiatric Psychiatric: Present: A&O x's 3 - Labs CBC & Chem 7: 10/19/16 07:35 10/19/16 07:35 Labs: Microbiology - Last 24 Hours (Table) 10/16/16 19:25 Blood Culture - Preliminary Blood No Growth after 96 hours Assessment and Plan (1) Acute diverticulitis Status: Acute Plan: Increase in WBC from 12 to 14 today however his pain is improved. He has no pain at all on physical exam, will advance to fulls for tonight and if his white count improves tomorrow will advance to soft diet. Continue abx. Appreciate medical recs
[2016-10-21] MEDS: metroNIDAZOLE 500 MG TAB PO SCH ×3 (00:04→16:32)
[2016-10-21] MEDS: BUDESONIDE 1 MG/2 ML NEBU INHALATION SCH ×2 (07:03→20:29)
[2016-10-21] MEDS: IPRATROPIUM-ALBUTEROL 3 ML NEB INHALATION SCH ×4 (07:03→20:29)
[2016-10-21] MEDS: POTASSIUM CHLORIDE ER 10 MEQ TAB.ER.PRT PO SCH ×2 (07:43→17:36)
[2016-10-21] MEDS: FAMOTIDINE 20 MG/2 ML VIAL IV SCH ×2 (07:43→21:52)
[2016-10-21] MEDS: amLODIPine 10 MG TAB PO SCH (07:43)
[2016-10-21] MEDS: FUROSEMIDE 20 MG TAB PO SCH (07:43)
[2016-10-21] MEDS: METOPROLOL TARTRATE 25 MG TAB PO SCH (07:44)
[2016-10-21] MEDS: ENOXAPARIN 40 MG/0.4 ML SYRINGE SQ SCH (07:44)
[2016-10-21] MEDS: BACLOFEN 10 MG TAB PO SCH ×2 (07:44→21:45)
[2016-10-21] MEDS: NYSTATIN 100,000 UNIT/GM POWD 15 GM TOPICAL SCH (07:45)
[2016-10-21] MEDS: predniSONE 20 MG TAB PO SCH (07:45)
[2016-10-21 08:58] LABS: Basophils % (A) 0 %; CH 28.3; Eosinophils # (A) 0.1 k/uL (0-0.7); Eosinophils % (A) 1 %; HCT 43.9 % (39.0-53.0); HDW 2.75; HGB 14.4 gm/dL (13.0-17.5); Luc # (Auto) 0.14; Luc % (Auto) 1; Lymphocytes # (A) 1.5 k/uL (1.0-4.8); Lymphocytes % (A) 14 %; MCH 28.3 pg (25.0-35.0); MCHC 32.8 g/dL (31.0-37.0); MCV 86.4 fL (80.0-100.0); Mean Platelet Volume 6.8; Monocytes # (A) 0.5 k/uL (0-1.0); Monocytes % (A) 5 %; Neutrophils # (A) 8.4 k/uL (1.3-7.7); Neutrophils % (A) 78 %; RBC 5.08 m/uL (4.30-5.90); RDW 13.4 % (11.5-15.5); WBC 10.7 k/uL (3.8-10.6); WBC (Perox) 10.81
[2016-10-21 09:15] LABS: Anion Gap 10 mmol/L; Blood Urea Nitrogen 8 mg/dL (9-20); Calcium 9.1 mg/dL (8.4-10.2); Carbon Dioxide 25 mmol/L (22-30); Chloride 102 mmol/L (98-107); Glucose 161 mg/dL (74-99); Non-African American GFR(MDRD) >60 (>60 ml/min/1.73 sqM); Potassium 3.6 mmol/L (3.5-5.1); Sodium 137 mmol/L (137-145)
--- NOTE | 2016-10-21 19:08 | P.PN ---
Subjective Is a 61-year-old gentleman apparently has been undergoing multiple problems including some gait dysfunction and intermittent weakness over the last few weeks to months. Patient apparently has been seen by neurologist in town was requested to undergo MRI of the spine and a nuclear study of the brain. There is some suspicion for [place] to some type of features. Interestingly patient apparently has been diagnosed with Alzheimer's dementia at the age of 50 by his doctor. Patient is on multiple medications including baclofen primidone and other pain medications for unknown reason. Patient today comes in the hospital for evaluation of all his medical conditions and this new abdominal pain that has started over the last few days. Patient apparently thought to have severe left- sided pain denies having any nausea vomiting bloody diarrhea urinary urgency or frequency at this time. Patient underwent a computed tomography scan of the abdomen and pelvis with contrast was noted to have a perforated diverticuli with mild amount of free air focused in the left hemiabdomen Patient is admitted to the hospital under under the care of Dr. sykes At this time patient's was at bedside states the patient is also having some weakness on the left side which is also new. Family has requested that patient be evaluated for all these conditions while he is in the hospital. I did discuss in detail that these issues are more chronic in nature some of the testing that needs to be done if it is done on more of an outpatient basis patient is currently admitted to the hospital for the etiology of his abdominal pain Patient denies having any urinary incontinence fecal incontinence. Denies having any chronic lower back pain. Apparently does seem to have a tremor intermittently gait appears to be shuffling 10/18/2016 States that the abdominal pain is slightly improved. Is tolerating liquids. No fevers chills nausea or significant diarrhea is reported. 10/19/2016 Today patient complains about a gastric pain that is severe No nausea reported loose stools. However is tolerating liquid diet. 10/20/2016 Abdominal pain appears to be improved. Tolerating liquid diet her graft no fevers chills headaches blurry vision is reported No overnight events reported Review of systems a 14 point review of systems was done nonpertinent was mentioned above Gen. appearance alert oriented 3 does not appear to be in significant distress neck is supple no JVD Pupils equal round reactive light and outpatient Lungs diminished breath sounds however no crackles rhonchi or wheezes and this is more apparent after coughing and clearing Heart S1-S2 heard regular rhythm no murmurs appreciable Abdomen is soft nontender organomegaly Lower ext no edema noted Musculoskeletal strength on the left lower extremity is about 3-4 out of 5 on the right is 5 out of 5 no loss of sensation is able to discriminate with light " touch No palpable lumbar spine tenderness Cranial nerves to till 12 grossly intact upper extremity strength is 5 out of 5 Assessment and plan #1 complicated diverticulitis acute #2 gait dysfunction and left-sided musculoskeletal weakness suspicion for nerve plexopathy or complex diagnosis like inflammatory dymelinating illness #3 chronic pain syndrome #4 acute bronchitis and ongoing tobacco use Plan Continue ongoing care diet to be advanced according to general surgery Is tolerating more full liquid diet Patient continues ask about a neurology evaluation. Again I did discuss that patient is to undergo the workup recommended by them in the past prior to any diagnosis being made by his neurologist. Vitals are stable Disposition senior living? Patient has has been evaluated by neurology and was recommended to undergo a SPECT study for suspicion for parkinsonian features and also EMG and MRI. Computed tomography scan of the spine was nondiagnostic for nerve compression Objective - Vital Signs Vital signs: Vital Signs Temp 98.4 F 10/21/16 15:00 Pulse 78 10/21/16 16:28 Resp 20 10/21/16 18:03 BP 134/80 10/21/16 15:00 Pulse Ox 92 L 10/21/16 15:00 Intake & Output 10/21/16 10/21/16 10/22/16 06:59 18:59 06:59 Output Total 1050 501 Balance -1050 -501 Weight 113 kg Output: Urine 1050 500 Stool 1 Other: Voiding Method Urinal Bedside Commode Urinal # Voids 4 1 # Bowel Movements 1 1 - Labs CBC & Chem 7: 10/21/16 08:36 10/21/16 08:36 Labs: Abnormal Lab Results - Last 24 Hours (Table) 10/21/16 10/21/16 Range/Units 08:36 08:36 WBC 10.7 H (3.8-10.6) k/uL Neutrophils # 8.4 H (1.3-7.7) k/uL BUN 8 L (9-20) mg/dL Glucose 161 H (74-99) mg/dL Microbiology - Last 24 Hours (Table) 10/16/16 19:25 Blood Culture - Preliminary Blood No Growth after 96 hours
[2016-10-21] MEDS: PRAMIPEXOLE 0.25 MG TAB PO SCH (21:45)
[2016-10-21] MEDS: ATORVASTATIN 10 MG TAB PO SCH (21:45)
[2016-10-21] MEDS: MONTELUKAST 10 MG TAB PO SCH (21:45)
[2016-10-21] MEDS: PRIMIDONE 50 MG TAB PO SCH (21:45)
[2016-10-21] MEDS: DONEPEZIL 5 MG TAB PO SCH (21:45)
--- NOTE | 2016-10-22 00:38 | P.PN ---
Subjective Principal diagnosis: Diverticulitis Tolerating diet. Abdominal pain resolved Objective - Vital Signs Vital signs: Vital Signs Temp 97.6 F 10/21/16 23:00 Pulse 83 10/21/16 23:00 Resp 20 10/21/16 23:00 BP 125/70 10/21/16 23:00 Pulse Ox 95 10/21/16 23:00 Intake & Output 10/21/16 10/21/16 10/22/16 06:59 18:59 06:59 Intake Total 400 Output Total 1050 501 Balance -1050 -501 400 Weight 113 kg Intake: Oral 400 Output: Urine 1050 500 Stool 1 Other: Voiding Method Urinal Bedside Commode Bedside Commode Urinal Urinal # Voids 4 1 3 # Bowel Movements 1 1 1 - Constitutional General appearance: Present: cooperative - Respiratory Details: non labored - Cardiovascular Rhythm: regular - Gastrointestinal Gastrointestinal Comment(s): soft/nontender/nondistended - Integumentary Integumentary: Absent: calor, cellulitis, cyanotic - Psychiatric Psychiatric: Present: A&O x's 3 - Labs CBC & Chem 7: 10/21/16 08:36 10/21/16 08:36 Labs: Abnormal Lab Results - Last 24 Hours (Table) 10/21/16 10/21/16 Range/Units 08:36 08:36 WBC 10.7 H (3.8-10.6) k/uL Neutrophils # 8.4 H (1.3-7.7) k/uL BUN 8 L (9-20) mg/dL Glucose 161 H (74-99) mg/dL Microbiology - Last 24 Hours (Table) 10/16/16 19:25 Blood Culture - Preliminary Blood No Growth after 120 hours Assessment and Plan (1) Acute diverticulitis Status: Acute Plan: Patient is improved, starting a soft diet. Patient is clear from surgical standpoint for discharge to rehab. If he needs to be kept for medical workup of his neurological issues I would be happy to transfer his care to the medicine team. Medicine recs are appreciated.
[2016-10-22] MEDS: metroNIDAZOLE 500 MG TAB PO SCH ×3 (02:02→16:57)
[2016-10-22] MEDS: NYSTATIN 100,000 UNIT/GM POWD 15 GM TOPICAL SCH ×3 (02:02→20:35)
[2016-10-22] MEDS: BUDESONIDE 1 MG/2 ML NEBU INHALATION SCH ×2 (07:27→20:51)
[2016-10-22] MEDS: IPRATROPIUM-ALBUTEROL 3 ML NEB INHALATION SCH ×4 (07:27→20:51)
[2016-10-22] MEDS: amLODIPine 10 MG TAB PO SCH (07:52)
[2016-10-22] MEDS: predniSONE 20 MG TAB PO SCH (07:52)
[2016-10-22] MEDS: POTASSIUM CHLORIDE ER 10 MEQ TAB.ER.PRT PO SCH ×2 (07:52→16:57)
[2016-10-22] MEDS: FAMOTIDINE 20 MG/2 ML VIAL IV SCH (07:52)
[2016-10-22] MEDS: METOPROLOL TARTRATE 25 MG TAB PO SCH (07:52)
[2016-10-22] MEDS: FUROSEMIDE 20 MG TAB PO SCH (07:52)
[2016-10-22] MEDS: BACLOFEN 10 MG TAB PO SCH ×2 (07:52→20:33)
[2016-10-22] MEDS: ENOXAPARIN 40 MG/0.4 ML SYRINGE SQ SCH (07:53)
--- NOTE | 2016-10-22 15:20 | P.PN ---
Subjective Is a 61-year-old gentleman apparently has been undergoing multiple problems including some gait dysfunction and intermittent weakness over the last few weeks to months. Patient apparently has been seen by neurologist in town was requested to undergo MRI of the spine and a nuclear study of the brain. There is some suspicion for [place] to some type of features. Interestingly patient apparently has been diagnosed with Alzheimer's dementia at the age of 50 by his doctor. Patient is on multiple medications including baclofen primidone and other pain medications for unknown reason. Patient today comes in the hospital for evaluation of all his medical conditions and this new abdominal pain that has started over the last few days. Patient apparently thought to have severe left- sided pain denies having any nausea vomiting bloody diarrhea urinary urgency or frequency at this time. Patient underwent a computed tomography scan of the abdomen and pelvis with contrast was noted to have a perforated diverticuli with mild amount of free air focused in the left hemiabdomen Patient is admitted to the hospital under under the care of Dr. sykes At this time patient's was at bedside states the patient is also having some weakness on the left side which is also new. Family has requested that patient be evaluated for all these conditions while he is in the hospital. I did discuss in detail that these issues are more chronic in nature some of the testing that needs to be done if it is done on more of an outpatient basis patient is currently admitted to the hospital for the etiology of his abdominal pain Patient denies having any urinary incontinence fecal incontinence. Denies having any chronic lower back pain. Apparently does seem to have a tremor intermittently gait appears to be shuffling 10/18/2016 States that the abdominal pain is slightly improved. Is tolerating liquids. No fevers chills nausea or significant diarrhea is reported. 10/19/2016 Today patient complains about a gastric pain that is severe No nausea reported loose stools. However is tolerating liquid diet. 10/20/2016 Abdominal pain appears to be improved. Tolerating liquid diet her graft no fevers chills headaches blurry vision is reported No overnight events reported 10/22/2016 No new overnight events patient is stable. Review of systems a 14 point review of systems was done nonpertinent was mentioned above Gen. appearance alert oriented 3 does not appear to be in significant distress neck is supple no JVD Pupils equal round reactive light and outpatient Lungs diminished breath sounds however no crackles rhonchi or wheezes and this is more apparent after coughing and clearing Heart S1-S2 heard regular rhythm no murmurs appreciable Abdomen is soft nontender organomegaly Lower ext no edema noted Musculoskeletal strength on the left lower extremity is about 3-4 out of 5 on the right is 5 out of 5 no loss of sensation is able to discriminate with light " touch No palpable lumbar spine tenderness Cranial nerves to till 12 grossly intact upper extremity strength is 5 out of 5 Assessment and plan #1 complicated diverticulitis acute #2 gait dysfunction and left-sided musculoskeletal weakness suspicion for nerve plexopathy or complex diagnosis like inflammatory dymelinating illness #3 chronic pain syndrome #4 acute bronchitis and ongoing tobacco use Plan Continue ongoing care diet to be advanced according to general surgery Is tolerating more full liquid diet Vitals are stable Disposition long-term? Patient has has been evaluated by neurology and was recommended to undergo a SPECT study for suspicion for parkinsonian features and also EMG and MRI. Computed tomography scan of the spine was nondiagnostic for nerve compression Objective - Vital Signs Vital signs: Vital Signs Temp 97.4 F L 10/22/16 07:00 Pulse 88 10/22/16 07:39 Resp 20 10/22/16 07:00 BP 133/85 10/22/16 07:00 Pulse Ox 90 L 10/22/16 07:00 Intake & Output 10/21/16 10/22/16 10/22/16 18:59 06:59 18:59 Intake Total 600 Output Total 501 Balance -501 600 Weight 113 kg Intake: Oral 600 Output: Urine 500 Stool 1 Other: Voiding Method Bedside Commode Bedside Commode Urinal Urinal Urinal # Voids 1 2 2 # Bowel Movements 1 1 1 - Labs CBC & Chem 7: 10/21/16 08:36 10/21/16 08:36 Labs: Microbiology - Last 24 Hours (Table) 10/16/16 19:25 Blood Culture - Preliminary Blood No Growth after 120 hours
[2016-10-22] MEDS: ATORVASTATIN 10 MG TAB PO SCH (20:32)
[2016-10-22] MEDS: DONEPEZIL 5 MG TAB PO SCH (20:34)
[2016-10-22] MEDS: FAMOTIDINE 20 MG TAB PO SCH (20:35)
[2016-10-22] MEDS: MONTELUKAST 10 MG TAB PO SCH (20:35)
[2016-10-22] MEDS: PRAMIPEXOLE 0.25 MG TAB PO SCH (20:36)
[2016-10-22] MEDS: PRIMIDONE 50 MG TAB PO SCH (20:36)
[2016-10-23] MEDS: metroNIDAZOLE 500 MG TAB PO SCH ×4 (00:38→23:07)
[2016-10-23] MEDS: BUDESONIDE 1 MG/2 ML NEBU INHALATION SCH ×2 (08:54→19:53)
[2016-10-23] MEDS: IPRATROPIUM-ALBUTEROL 3 ML NEB INHALATION SCH ×4 (08:54→19:53)
[2016-10-23] MEDS: ENOXAPARIN 40 MG/0.4 ML SYRINGE SQ SCH (09:01)
[2016-10-23] MEDS: FAMOTIDINE 20 MG TAB PO SCH ×2 (09:02→20:16)
[2016-10-23] MEDS: BACLOFEN 10 MG TAB PO SCH ×2 (09:02→20:16)
[2016-10-23] MEDS: predniSONE 20 MG TAB PO SCH (09:02)
[2016-10-23] MEDS: POTASSIUM CHLORIDE ER 10 MEQ TAB.ER.PRT PO SCH ×2 (09:03→16:19)
[2016-10-23] MEDS: amLODIPine 10 MG TAB PO SCH (09:03)
[2016-10-23] MEDS: METOPROLOL TARTRATE 25 MG TAB PO SCH (09:03)
[2016-10-23] MEDS: NYSTATIN 100,000 UNIT/GM POWD 15 GM TOPICAL SCH ×2 (09:05→20:18)
[2016-10-23] MEDS: FUROSEMIDE 20 MG TAB PO SCH (09:09)
[2016-10-23 17:19] VITALS: RESP 16
[2016-10-23] MEDS: DONEPEZIL 5 MG TAB PO SCH (20:16)
[2016-10-23] MEDS: MONTELUKAST 10 MG TAB PO SCH (20:16)
[2016-10-23] MEDS: ATORVASTATIN 10 MG TAB PO SCH (20:16)
[2016-10-23] MEDS: PRIMIDONE 50 MG TAB PO SCH (20:16)
[2016-10-23] MEDS: PRAMIPEXOLE 0.25 MG TAB PO SCH (20:17)
[2016-10-24 07:43] VITALS: BP 129/80; PULSE 76; TEMP 97.7
[2016-10-24] MEDS: BUDESONIDE 1 MG/2 ML NEBU INHALATION SCH (08:43)
[2016-10-24] MEDS: IPRATROPIUM-ALBUTEROL 3 ML NEB INHALATION SCH ×2 (08:43→11:53)
[2016-10-24] MEDS: metroNIDAZOLE 500 MG TAB PO SCH (08:52)
[2016-10-24] MEDS: ENOXAPARIN 40 MG/0.4 ML SYRINGE SQ SCH (08:52)
[2016-10-24] MEDS: METOPROLOL TARTRATE 25 MG TAB PO SCH (08:53)
[2016-10-24] MEDS: predniSONE 20 MG TAB PO SCH (08:53)
[2016-10-24] MEDS: POTASSIUM CHLORIDE ER 10 MEQ TAB.ER.PRT PO SCH (08:53)
[2016-10-24] MEDS: BACLOFEN 10 MG TAB PO SCH (08:53)
[2016-10-24] MEDS: amLODIPine 10 MG TAB PO SCH (08:53)
[2016-10-24] MEDS: FAMOTIDINE 20 MG TAB PO SCH (08:54)
[2016-10-24] MEDS: FUROSEMIDE 20 MG TAB PO SCH (08:55)
[2016-10-24] MEDS: NYSTATIN 100,000 UNIT/GM POWD 15 GM TOPICAL SCH (08:55)
--- NOTE | 2016-10-24 14:48 | P.PN ---
Subjective no overnight events and patient is clinically doing well and from medical perspective patient can be discharged.antibiotics as per primary service. Objective - Vital Signs Vital signs: Vital Signs Temp 97.7 F 10/24/16 07:00 Pulse 76 10/24/16 12:06 Resp 16 10/24/16 07:00 BP 129/80 10/24/16 07:00 Pulse Ox 93 L 10/24/16 08:46 Intake & Output 10/23/16 10/24/16 10/24/16 18:59 06:59 18:59 Intake Total 520 Output Total 600 1010 425 Balance -80 -1010 -425 Weight 113 kg Intake: Oral 520 Output: Drainage 60 Abdomen 60 Urine 600 950 425 Other: Voiding Method Urinal Urinal Urinal # Bowel Movements 1 1 - Exam Gen. appearance alert oriented 3 does not appear to be in significant distress neck is supple no JVD Pupils equal round reactive light and outpatient Lungs diminished breath sounds however no crackles rhonchi or wheezes and this is more apparent after coughing and clearing Heart S1-S2 heard regular rhythm no murmurs appreciable Abdomen is soft nontender organomegaly Lower ext no edema noted Musculoskeletal strength on the left lower extremity is about 3-4 out of 5 on the right is 5 out of 5 no loss of sensation is able to discriminate with light " touch No palpable lumbar spine tenderness Cranial nerves to till 12 grossly intact upper extremity strength is 5 out of 5 - Labs CBC & Chem 7: 10/21/16 08:36 10/21/16 08:36 Assessment and Plan Plan: #1 complicated diverticulitis acute #2 gait dysfunction and left-sided musculoskeletal weakness suspicion for nerve plexopathy or complex diagnosis like inflammatory dymelinating illness #3 chronic pain syndrome #4 acute bronchitis and ongoing tobacco use
--- NOTE | 2016-10-24 14:51 | P.DS ---
Providers Date of admission: 10/16/16 21:39 Attending physician: Juan Jenkins DO Consults: 10/16/16 21:37 Consult Physician Routine Consulting Provider: Ryan Rosas Consult Reason/Comments: med Do you want consulting provider notified?: Yes Primary care physician: Blake Gifford - Discharge Diagnosis(es) (1) Acute diverticulitis This 61-year-old male who initially presented on 10/16/2016 with acute diverticulitis. Patient was admitted with bowel rest and IV antibiotics. He progressively improved and began a clear liquid diet which was advanced to soft diet over the course of several days. He currently has no abdominal pain. He's tolerating his diet. He was seen by both internal medicine and neurology during his visit. He has some neurologic gait issues which she is going to have worked up as an outpatient. Internal medicine recommended physical therapy and rehabilitation. I agreed with these recommendations. The patient will be discharged to a rehabilitation facility on a soft diet with instructions to follow up with me in the clinic. He'll also follow up with his neurologist and medical doctor. Current Visit: Yes Status: Acute Patient Condition at Discharge: Stable Plan - Discharge Summary New Discharge Prescriptions: No Action Simvastatin [Zocor] 20 mg PO HS Metoprolol Tartrate [Lopressor] 25 mg PO QAM Albuterol Inhaler [Ventolin Hfa Inhaler] 2 puff INHALATION RT-QID Primidone [Mysoline] 50 mg PO HS Pramipexole [Mirapex] 0.25 mg PO HS Beclomethasone Dip 80 Mcg/Puff [Qvar 80 mcg] 2 puff INHALATION RT-BID Potassium Chloride [Klor-Con 10] 10 meq PO BID-W/MEALS Montelukast [Singulair] 10 mg PO HS Furosemide [Lasix] 20 mg PO QAM Donepezil HCl [Aricept] 5 mg PO HS Baclofen [Lioresal] 10 mg PO HS Baclofen [Lioresal] 5 mg PO BID amLODIPine [Norvasc] 10 mg PO QAM Discharge Medication List Albuterol Inhaler [Ventolin Hfa Inhaler] 2 puff INHALATION RT-QID 10/16/16 [ History] Baclofen [Lioresal] 5 mg PO BID 10/16/16 [History] Baclofen [Lioresal] 10 mg PO HS 10/16/16 [History] Beclomethasone Dip 80 Mcg/Puff [Qvar 80 mcg] 2 puff INHALATION RT-BID 10/16/16 [ History] Donepezil HCl [Aricept] 5 mg PO HS 10/16/16 [History] Furosemide [Lasix] 20 mg PO QAM 10/16/16 [History] Metoprolol Tartrate [Lopressor] 25 mg PO QAM 10/16/16 [History] Montelukast [Singulair] 10 mg PO HS 10/16/16 [History] Potassium Chloride [Klor-Con 10] 10 meq PO BID-W/MEALS 10/16/16 [History] Pramipexole [Mirapex] 0.25 mg PO HS 10/16/16 [History] Primidone [Mysoline] 50 mg PO HS 10/16/16 [History] Simvastatin [Zocor] 20 mg PO HS 10/16/16 [History] amLODIPine [Norvasc] 10 mg PO QAM 10/16/16 [History] Follow up Appointment(s)/Referral(s): Juan Jenkins DO [Doctor of Osteopathic Medicine] - 1 Week Ирина Lozano MD [Primary Care Provider] - 1-2 days Patient Instructions/Handouts: How to Stop Smoking (DC) Activity/Diet/Wound Care/Special Instructions: Milagros NG. Soft diet. Discharge Disposition: TRANSFER TO SNF/ECF
== END 2016-10-24 16:08 | DRG 392 ==
LOC: EC 18:57 → 4MS4W 21:39
PROVIDERS: ADMIT Student in an Organized Health Care Education/Training Program; ATTEND Student in an Organized Health Care Education/Training Program
DX: K57.92 Diverticulitis of intestine, part unspecified, without perforation or abscess without bleeding (principal); G20 Parkinson's disease; G30.9 Alzheimer's disease, unspecified; J44.0 Chronic obstructive pulmonary disease with (acute) lower respiratory infection; F02.80 Dementia in other diseases classified elsewhere, unspecified severity, without behavioral disturbance, psychotic disturbance, mood disturbance, and anxiety; E78.5 Hyperlipidemia, unspecified; I10 Essential (primary) hypertension; G47.30 Sleep apnea, unspecified; F17.200 Nicotine dependence, unspecified, uncomplicated; R26.9 Unspecified abnormalities of gait and mobility; J20.9 Acute bronchitis, unspecified; G89.4 Chronic pain syndrome; I25.2 Old myocardial infarction; Z79.52 Long term (current) use of systemic steroids; Z79.899 Other long term (current) drug therapy; Z79.51 Long term (current) use of inhaled steroids; Z86.73 Personal history of transient ischemic attack (TIA), and cerebral infarction without residual deficits
CPT/HCPCS: 36415; 71020; 74177; 80048; 80053; 81001; 82550; 82553; 83605; 83735; 84100; 84484; 85025; 85610; 85730; 87040; 87086; 87324; 93005; 94640; 94760; 96361; 96365; 96375; 99285

== ENCOUNTER → 2016-11-01 | Outpatient (CLI) | payer OTHER ==
--- NOTE | 2016-11-01 17:12 | PN ---
PROGRESS NOTE This is a 61-year-old male patient with known history of severe symptomatic obstructive sleep apnea. The patient carries an AHI of 89.2. He last saw me here in the sleep center on 08/30/2016, and at that time the patient was using a Simplus full-face mask with a BiPAP pressure of 14/10 cm of water. Nevertheless, he was not compliant at all and he was not using the machine. Upon further questioning, the patient seemed to have had difficulties with his full-face mask, and based on that I switched this patient to an AirFit F10 full-face mask and I asked him to restart the BiPAP therapy. Note that during the past 2 months the patient was hospitalized for bowel perforation. No surgery was done; the patient was treated conservatively, knowing that he was not septic at all. He ultimately was sent to [facility], where he was recuperating. I noted that he is still not using his BiPAP. The pressures are essentially the same; however, the patient has not put any significant number of hours of BiPAP use on his machine. He tells me that the mask is uncomfortable and the pressure is high and he is unable to tolerate it. I reviewed the patient's CPAP titration, and I think we may get by with lower pressure to improve his compliance. I asked the patient to restart using the BiPAP machine after making adjustments on his machine, and he seems to be interested, although I am not sure we are going to see good compliance from this this patient. REVIEW OF SYSTEMS: A 12-point review of system was done. Positive findings were all mentioned above in history of present illness. At this point in time, he is sleepy, tired, fatigued. No chest pain. No shortness of breath. No angina. No major swelling in the lower extremities. No nausea or vomiting. No abdominal pain. He has abdominal distention. He is profoundly weak. He is moving around with the help of a wheelchair. He is a senior care resident. No change in mental status. No seizure activity. No ulcers or open wounds. PHYSICAL EXAMINATION: BP is 111/72, pulse 78, respirations 16, temperature 98.7, saturation 94% on room air. Flint score is 14. Weight is 247. GENERAL APPEARANCE: Obese, calm, comfortable. HEENT: Short neck. Crowding of posterior pharynx. No goiter or neck masses. Head is atraumatic, normocephalic. NECK: Supple. There is no JVD. No goiter or neck masses. LUNGS: Diminished breath sounds bilaterally; otherwise clear. HEART: Sounds regular rate and rhythm. Normal S1, S2. No S3, no S4. No murmurs. ABDOMEN: Soft, nontender. No organomegaly. No direct tenderness. No rebound tenderness or guarding. EXTREMITIES: Trace edema. There is no cyanosis or clubbing. SKIN: No wounds, ulcers or any ulcerations. NEURO: Alert and oriented x3. There is no focal neurological deficit. Psych is negative. SKELETAL: Negative for any joint deformities or kyphoscoliosis. IMPRESSION: 1. Severe symptomatic obstructive sleep apnea with an AHI of 89.2. Noncompliant with treatment. 2. Chronic hypersomnia. 3. Obesity with a BMI of 45. 4. Hypertension. 5. Hyperlipidemia. 6. Cerebrovascular accident. 7. Abdominal complications of a bowel perforation, for which the patient did not require any surgery. 8. [facility] resident for further recuperation. PLAN: 1. Drop the BiPAP pressure down to 12/8 cm of water on a trial basis. I had made the drop to improve this patient's compliance with the understanding that this may be a suboptimal pressure for him. 2. Continue AirFit F10 full-face mask. 3. See me back in 2 months' time for a final check. I am not sure the patient is going to be compliant. The importance of BiPAP therapy was explained to him at length. He understands the consequences of not using the BiPAP machine. MMODL / IJN: [id number] /
== END | disposition home or self-care (01) ==
LOC: SLEEP 13:08
PROVIDERS: ATTEND Internal Medicine Critical Care Medicine
DX: G47.33 Obstructive sleep apnea (adult) (pediatric) (principal); G47.10 Hypersomnia, unspecified; E66.9 Obesity, unspecified; I10 Essential (primary) hypertension; E78.5 Hyperlipidemia, unspecified; I63.9 Cerebral infarction, unspecified; K63.1 Perforation of intestine (nontraumatic); Z68.42 Body mass index [BMI] 45.0-49.9, adult

== ENCOUNTER → 2016-11-24 | Outpatient (CLI) | payer OTHER ==
--- NOTE | 2016-11-24 10:49 | MR ---
EXAMINATION TYPE: MR lumbar spine wo con DATE OF EXAM: 11/24/2016 COMPARISON: NONE HISTORY: lumbago TECHNIQUE: T1 and T2 sagittal and T2 axial images of the lumbar spine are submitted. T1 axials could not be obtained because the patient had difficulty with breathing and severe artifact. The T2 axials are nondiagnostic due to severe motion artifact. FINDINGS: Grossly there is no abnormal signal seen within the visualized spinal cord or paraspinal so ft tissues. Multilevel mild disc desiccation noted compatible with mild degenerative disc disease. Brower spect a large cyst extending off the anterior margin of the left kidney. At L1-2 there is no disc herniation or canal stenosis. No foraminal encroachment. At L2-3 there is left lateral disc bulging but no canal stenosis. Mild left-sided foraminal encroachm ent. At L3-4 there is no disc herniation or canal stenosis. No foraminal encroachment. At L4-5 there is no disc herniation or canal stenosis. No foraminal encroachment. At L5-S1 there is no disc herniation or canal stenosis. No foraminal encroachment. IMPRESSION: 1. Exam is severely limited due to motion artifact. The patient was unable to complete the exam. On t he images provided there is mild multilevel degenerative disc disease. Left lateral disc bulging L2-L 3 with mild foraminal encroachment.
== END | disposition home or self-care (01) ==
LOC: RADMRIMAIN 09:49
PROVIDERS: ATTEND Psychiatry & Neurology Pain Medicine
DX: M51.26 Other intervertebral disc displacement, lumbar region (principal); M51.36 Other intervertebral disc degeneration, lumbar region; R41.3 Other amnesia; G20 Parkinson's disease
CPT/HCPCS: 72148

== ENCOUNTER → 2017-01-09 | Outpatient (CLI) | payer OTHER ==
[2017-01-09 11:27] LABS: Blood Urea Nitrogen 15 mg/dL (9-20); Non-African American GFR(MDRD) >60 (>60 ml/min/1.73 sqM)
--- NOTE | 2017-01-10 10:16 | MR ---
EXAMINATION TYPE: MR brain wo/w con DATE OF EXAM: 01/09/2017 COMPARISON: Prior MRI brain May 18, 2010. HISTORY: Parkinson's disease, history of dizziness or hearing loss. TECHNIQUE: Multiplanar, multisequence images of the brain and brainstem is performed without and with IV contras t, utilizing 12 mL intravenous Gadavist . FINDINGS: Diffusion weighted images demonstrate no evidence of a recent infarct or other diffusion ab normality. There is no worrisome extra-axial fluid collection. There is ventricular and sulcal promi nence consistent with diffuse cerebral atrophy. Degree of ventricular dilatation is slightly out of p roportion to degree of sulcal effacement and a normal pressure hydrocephalus is not excluded. There i s increased ventricular dilatation noted since prior study. There are multifocal areas of T2 hyperint ensity seen throughout the deep and periventricular white matter. Confluent appearance at periventric ular level is seen. There is progression in findings from prior MRI. Midline structures demonstrate normal morphology. Diffuse thinning or atrophy of corpus callosum is n oted. The craniocervical junction appears within normal limits. Post contrast images demonstrate no abnormal enhancement. The dural venous sinuses appear patent. The globes are intact bilaterally. Ther e are few small mucous retention cysts or polyps in bilateral maxillary sinus on current study. Remai nder paranasal sinuses are clear. IMPRESSION: There is mild diffuse cerebral atrophy and moderate to severe nonspecific white matter ch anges most likely on basis of product of proximal vessel ischemic change. There is suggestion of vent ricular dilatation or NPH. Progression from 2011 MRI is noted.
== END | disposition home or self-care (01) ==
LOC: RADMRIMAIN 10:48
PROVIDERS: ATTEND Psychiatry & Neurology Neurology
DX: G31.9 Degenerative disease of nervous system, unspecified (principal); R90.82 White matter disease, unspecified; G20 Parkinson's disease
CPT/HCPCS: 82565; 84520; 70553; 36415; A9581

== ENCOUNTER → 2019-09-03 | Outpatient (CLI) | payer MEDICARE ==
[2019-09-03 13:48] LABS: HCT 45.3 % (39.0-53.0); MCH 29.2 pg (25.0-35.0); MCHC 33.1 g/dL (31.0-37.0); MCV 88.3 fL (80.0-100.0); Mean Platelet Volume 7.2; Platelet Count 171 k/uL (150-450); RBC 5.13 m/uL (4.30-5.90); RDW 13.5 % (11.5-15.5); WBC 8.1 k/uL (3.8-10.6)
[2019-09-03 19:15] LABS: African American GFR (CKD) 105.7 (60.0-200.0); Albumin 4.3 g/dL (3.80-4.90); Albumin/Globulin Ratio 1.79 (1.60-3.17); Anion Gap 9.1 mmol/L (4.00-12.00); BUN/Creat Ratio 21.11 Ratio (12.00-20.00); Calcium 9.4 mg/dL (8.7-10.3); Carbon Dioxide 24.9 mmol/L (21.6-31.8); Globulin 2.4 g/dL (1.6-3.3); Non-African American GFR(CKD) 91.2 (60.0-200.0); Potassium 4.2 mmol/L (3.5-5.5); Total Bilirubin 0.6 mg/dL (0.3-1.2); Total Protein 6.7 g/dL (6.2-8.2)
[2019-09-03 19:23] LABS: Prostate Specific Antigen 2.4 ng/mL (0.0-4.5); T4, Free (Free Thyroxine) 1.3 ng/dL (0.80-1.80)
== END | disposition home or self-care (01) ==
LOC: LABWHC1 11:17
PROVIDERS: ATTEND Internal Medicine
DX: Z12.5 Encounter for screening for malignant neoplasm of prostate (principal); I50.9 Heart failure, unspecified
CPT/HCPCS: 36415; 80053; 84153; 84439; 84443; 85027